=== PATIENT | female | born 1940 | race African-American/Black ===

== ENCOUNTER → 2017-10-04 | Outpatient (CLI) | payer OTHER, MEDICARE ==
[~2017-10-04] MED LIST: ALBU0.63 IH; ASPI-12 PO; BENZ200C53 PO; DAPS25TA PO; FLUT1AER IH; ISOS30TA11 PO; LIDOCAINE/PRILOCAINE CREAM 5GM TUBE TP ONE; LOSA1TAB37 PO; PROP20TA7 PO; SITA100T12 PO
[2017-10-04 15:25] VITALS: BP 168/71
== END | disposition home or self-care (01) ==
LOC: WHH 13:00
PROVIDERS: ATTEND Family Medicine
DX: I83.028 Varicose veins of left lower extremity with ulcer other part of lower leg (principal); E11.622 Type 2 diabetes mellitus with other skin ulcer; L97.821 Non-pressure chronic ulcer of other part of left lower leg limited to breakdown of skin; I89.0 Lymphedema, not elsewhere classified; I25.10 Atherosclerotic heart disease of native coronary artery without angina pectoris; I10 Essential (primary) hypertension; L10.0 Pemphigus vulgaris; E11.65 Type 2 diabetes mellitus with hyperglycemia; M19.90 Unspecified osteoarthritis, unspecified site; Z86.73 Personal history of transient ischemic attack (TIA), and cerebral infarction without residual deficits
CPT/HCPCS: 15271; A6197; J3490; Q4133

== ENCOUNTER → 2017-10-08 | Outpatient (CLI) | payer OTHER, MEDICARE ==
[~2017-10-08] MED LIST changes: -LIDOCAINE/PRILOCAINE CREAM 5GM TUBE TP ONE
[2017-10-08 18:23] VITALS: BP 138/53
== END | disposition home or self-care (01) ==
LOC: WHH 09:20
PROVIDERS: ATTEND Family Medicine
DX: I83.028 Varicose veins of left lower extremity with ulcer other part of lower leg (principal); E11.622 Type 2 diabetes mellitus with other skin ulcer; L97.821 Non-pressure chronic ulcer of other part of left lower leg limited to breakdown of skin; I25.10 Atherosclerotic heart disease of native coronary artery without angina pectoris; I10 Essential (primary) hypertension; I89.0 Lymphedema, not elsewhere classified; L10.0 Pemphigus vulgaris; M19.90 Unspecified osteoarthritis, unspecified site; E11.65 Type 2 diabetes mellitus with hyperglycemia; Z86.73 Personal history of transient ischemic attack (TIA), and cerebral infarction without residual deficits
CPT/HCPCS: A6196; G0463

== ENCOUNTER → 2017-10-11 | Outpatient (CLI) | payer OTHER, MEDICARE ==
[2017-10-11 16:12] VITALS: BP 163/57
== END | disposition home or self-care (01) ==
LOC: WHH 13:00
PROVIDERS: ATTEND Family Medicine
DX: T86.828 Other complications of skin graft (allograft) (autograft) (principal); I83.028 Varicose veins of left lower extremity with ulcer other part of lower leg; E11.622 Type 2 diabetes mellitus with other skin ulcer; L97.821 Non-pressure chronic ulcer of other part of left lower leg limited to breakdown of skin; I87.2 Venous insufficiency (chronic) (peripheral); I89.0 Lymphedema, not elsewhere classified; I25.10 Atherosclerotic heart disease of native coronary artery without angina pectoris; I10 Essential (primary) hypertension; E11.65 Type 2 diabetes mellitus with hyperglycemia; M19.90 Unspecified osteoarthritis, unspecified site; L10.0 Pemphigus vulgaris; Z86.73 Personal history of transient ischemic attack (TIA), and cerebral infarction without residual deficits; Y83.2 Surgical operation with anastomosis, bypass or graft as the cause of abnormal reaction of the patient, or of later complication, without mention of misadventure at the time of the procedure
CPT/HCPCS: 15271; A4450; A6197; Q4133

== ENCOUNTER → 2017-10-18 | Outpatient (CLI) | payer OTHER, MEDICARE ==
[2017-10-18 16:34] VITALS: BP 152/68
== END | disposition home or self-care (01) ==
LOC: WHH 13:00
PROVIDERS: ATTEND Family Medicine
DX: I83.028 Varicose veins of left lower extremity with ulcer other part of lower leg (principal); L97.821 Non-pressure chronic ulcer of other part of left lower leg limited to breakdown of skin; I89.0 Lymphedema, not elsewhere classified; I25.10 Atherosclerotic heart disease of native coronary artery without angina pectoris; I10 Essential (primary) hypertension; M19.90 Unspecified osteoarthritis, unspecified site; E11.65 Type 2 diabetes mellitus with hyperglycemia; L10.0 Pemphigus vulgaris; Z86.73 Personal history of transient ischemic attack (TIA), and cerebral infarction without residual deficits
CPT/HCPCS: 15271; A6196; Q4133

== ENCOUNTER → 2017-10-25 | Outpatient (CLI) | payer OTHER, MEDICARE ==
[2017-10-25 16:20] VITALS: BP 164/52
== END | disposition home or self-care (01) ==
LOC: WHH 13:00
PROVIDERS: ATTEND Family Medicine
DX: T86.828 Other complications of skin graft (allograft) (autograft) (principal); I83.028 Varicose veins of left lower extremity with ulcer other part of lower leg; E11.622 Type 2 diabetes mellitus with other skin ulcer; L97.821 Non-pressure chronic ulcer of other part of left lower leg limited to breakdown of skin; I10 Essential (primary) hypertension; I89.0 Lymphedema, not elsewhere classified; E11.65 Type 2 diabetes mellitus with hyperglycemia; M19.90 Unspecified osteoarthritis, unspecified site; Z86.73 Personal history of transient ischemic attack (TIA), and cerebral infarction without residual deficits; Y83.2 Surgical operation with anastomosis, bypass or graft as the cause of abnormal reaction of the patient, or of later complication, without mention of misadventure at the time of the procedure
CPT/HCPCS: A6209; G0463

== ENCOUNTER → 2017-11-01 | Outpatient (CLI) | payer OTHER, MEDICARE ==
[2017-11-01 15:15] VITALS: BP 172/76
== END | disposition home or self-care (01) ==
LOC: WHH 13:00
PROVIDERS: ATTEND Family Medicine
DX: I83.028 Varicose veins of left lower extremity with ulcer other part of lower leg (principal); L97.821 Non-pressure chronic ulcer of other part of left lower leg limited to breakdown of skin; L10.0 Pemphigus vulgaris; I10 Essential (primary) hypertension; I89.0 Lymphedema, not elsewhere classified; M19.90 Unspecified osteoarthritis, unspecified site; I25.10 Atherosclerotic heart disease of native coronary artery without angina pectoris; Z86.73 Personal history of transient ischemic attack (TIA), and cerebral infarction without residual deficits
CPT/HCPCS: 11042; A6197; A6248

== ENCOUNTER → 2017-11-08 | Outpatient (CLI) | payer OTHER, MEDICARE ==
[~2017-11-08] MED LIST changes: +LIDOCAINE HCL 4% LTA SOL 4 ML VIAL TP ONE
[2017-11-08 17:53] VITALS: BP 170/63
== END | disposition home or self-care (01) ==
LOC: WHH 13:00
PROVIDERS: ATTEND Family Medicine
DX: I83.028 Varicose veins of left lower extremity with ulcer other part of lower leg (principal); L97.821 Non-pressure chronic ulcer of other part of left lower leg limited to breakdown of skin; I89.0 Lymphedema, not elsewhere classified; I25.10 Atherosclerotic heart disease of native coronary artery without angina pectoris; I10 Essential (primary) hypertension; M19.90 Unspecified osteoarthritis, unspecified site; Z86.73 Personal history of transient ischemic attack (TIA), and cerebral infarction without residual deficits
CPT/HCPCS: 11042; A4450; A6197; A6248

== ENCOUNTER → 2017-11-15 | Outpatient (CLI) | payer OTHER, MEDICARE ==
[~2017-11-15] MED LIST changes: -LIDOCAINE HCL 4% LTA SOL 4 ML VIAL TP ONE; +LIDOCAINE/PRILOCAINE CREAM 5GM TUBE TP ONE
[2017-11-15 13:18] VITALS: BP 172/79
== END | disposition home or self-care (01) ==
LOC: WHH 13:00
PROVIDERS: ATTEND Family Medicine
DX: I83.028 Varicose veins of left lower extremity with ulcer other part of lower leg (principal); L97.821 Non-pressure chronic ulcer of other part of left lower leg limited to breakdown of skin; I89.0 Lymphedema, not elsewhere classified; I25.10 Atherosclerotic heart disease of native coronary artery without angina pectoris; I10 Essential (primary) hypertension; M19.90 Unspecified osteoarthritis, unspecified site; Z86.73 Personal history of transient ischemic attack (TIA), and cerebral infarction without residual deficits
CPT/HCPCS: 11042; A4450; A6197; A6248; J3490

== ENCOUNTER → 2017-11-22 | Outpatient (CLI) | payer OTHER, MEDICARE ==
[2017-11-22 13:28] VITALS: BP 161/69
== END | disposition home or self-care (01) ==
LOC: WHH 13:00
PROVIDERS: ATTEND Family Medicine
DX: I83.028 Varicose veins of left lower extremity with ulcer other part of lower leg (principal); E11.622 Type 2 diabetes mellitus with other skin ulcer; L97.821 Non-pressure chronic ulcer of other part of left lower leg limited to breakdown of skin; I89.0 Lymphedema, not elsewhere classified; E11.65 Type 2 diabetes mellitus with hyperglycemia; I25.10 Atherosclerotic heart disease of native coronary artery without angina pectoris; I10 Essential (primary) hypertension; M19.90 Unspecified osteoarthritis, unspecified site; Z86.73 Personal history of transient ischemic attack (TIA), and cerebral infarction without residual deficits
CPT/HCPCS: A6197; A6452; G0463; J3490

== ENCOUNTER 2017-11-29 13:00 | Outpatient (CLI) | payer OTHER, MEDICARE ==
[~2017-11-29 13:00] MED LIST changes: -LIDOCAINE/PRILOCAINE CREAM 5GM TUBE TP ONE
[2017-11-29 13:31] VITALS: BP 155/66
== END 2017-11-29 14:42 | disposition home or self-care (01) ==
LOC: WHH 13:00
PROVIDERS: ATTEND Family Medicine
DX: I83.028 Varicose veins of left lower extremity with ulcer other part of lower leg (principal); E11.622 Type 2 diabetes mellitus with other skin ulcer; L97.821 Non-pressure chronic ulcer of other part of left lower leg limited to breakdown of skin; I89.0 Lymphedema, not elsewhere classified; E11.65 Type 2 diabetes mellitus with hyperglycemia; I25.10 Atherosclerotic heart disease of native coronary artery without angina pectoris; I10 Essential (primary) hypertension; M19.90 Unspecified osteoarthritis, unspecified site; Z86.73 Personal history of transient ischemic attack (TIA), and cerebral infarction without residual deficits
CPT/HCPCS: G0463

== ENCOUNTER → 2018-07-11 | Outpatient (CLI) | payer OTHER, MEDICARE | END | disposition home or self-care (01) | LOC: RAH 09:26 | PROVIDERS: ATTEND Internal Medicine | DX: I08.1 Rheumatic disorders of both mitral and tricuspid valves (principal) | CPT/HCPCS: 93306 ==

== ENCOUNTER → 2019-09-18 | Outpatient (CLI) | payer OTHER, MEDICARE | END | disposition home or self-care (01) | LOC: RAH 12:52 | PROVIDERS: ATTEND Internal Medicine | DX: M47.812 Spondylosis without myelopathy or radiculopathy, cervical region (principal); M85.88 Other specified disorders of bone density and structure, other site; M25.78 Osteophyte, vertebrae | CPT/HCPCS: 72040; 72072 ==

== ENCOUNTER → 2019-12-14 | Outpatient (CLI) | payer OTHER, MEDICARE | END | disposition home or self-care (01) | LOC: RAH 10:11 | PROVIDERS: ATTEND Internal Medicine Critical Care Medicine | DX: I27.20 Pulmonary hypertension, unspecified (principal) | CPT/HCPCS: 93306; 93356 ==

== ENCOUNTER → 2020-03-15 | Outpatient (CLI) | payer OTHER, MEDICARE ==
[~2020-03-15] MED LIST changes: +HONEY 1 APPL/ML TUBE TP ONE
[2020-03-15 16:39] VITALS: BP 146/71
== END | disposition home or self-care (01) ==
LOC: WHH 14:15
PROVIDERS: ATTEND Family Medicine
DX: I83.028 Varicose veins of left lower extremity with ulcer other part of lower leg (principal); L97.822 Non-pressure chronic ulcer of other part of left lower leg with fat layer exposed; I89.0 Lymphedema, not elsewhere classified; I87.2 Venous insufficiency (chronic) (peripheral); I73.9 Peripheral vascular disease, unspecified; R01.1 Cardiac murmur, unspecified; C81.90 Hodgkin lymphoma, unspecified, unspecified site; Z86.711 Personal history of pulmonary embolism; Z98.49 Cataract extraction status, unspecified eye
CPT/HCPCS: 11042; 36415; 84134; 85651; 86140; 87070; A6197

== ENCOUNTER → 2020-03-18 | Outpatient (CLI) | payer OTHER, MEDICARE ==
[~2020-03-18] MED LIST changes: -ALBU0.63 IH; -ASPI-12 PO; -BENZ200C53 PO; -DAPS25TA PO; -FLUT1AER IH; -HONEY 1 APPL/ML TUBE TP ONE; -ISOS30TA11 PO; +LIDOCAINE HCL 4% LTA SOL 4 ML VIAL TP ONE; -LOSA1TAB37 PO; -PROP20TA7 PO; -SITA100T12 PO
[2020-03-18 13:44] VITALS: BP 129/51; PULSE 78; RESP 18; TEMP 99
== END | disposition home or self-care (01) ==
LOC: WHH 13:00
PROVIDERS: ATTEND Family Medicine
DX: I83.028 Varicose veins of left lower extremity with ulcer other part of lower leg (principal); L97.822 Non-pressure chronic ulcer of other part of left lower leg with fat layer exposed; I89.0 Lymphedema, not elsewhere classified; I10 Essential (primary) hypertension; I87.2 Venous insufficiency (chronic) (peripheral); I73.9 Peripheral vascular disease, unspecified; R01.1 Cardiac murmur, unspecified; C81.90 Hodgkin lymphoma, unspecified, unspecified site; Z86.711 Personal history of pulmonary embolism; Z98.49 Cataract extraction status, unspecified eye
CPT/HCPCS: 11042; A6197

== ENCOUNTER → 2020-03-21 | Outpatient (CLI) | payer OTHER, MEDICARE ==
[~2020-03-21] MED LIST changes: +ALBU0.63 IH; +ASPI-12 PO; +BENZ200C53 PO; +DAPS25TA PO; +FLUT1AER IH; +ISOS30TA11 PO; -LIDOCAINE HCL 4% LTA SOL 4 ML VIAL TP ONE; +LOSA1TAB37 PO; +PROP20TA7 PO; +SITA100T12 PO
[2020-03-21 11:16] VITALS: BP 102/58
== END | disposition home or self-care (01) ==
LOC: WHH 10:00
PROVIDERS: ATTEND Family Medicine
DX: T81.41XD Infection following a procedure, superficial incisional surgical site, subsequent encounter (principal); I10 Essential (primary) hypertension; I89.0 Lymphedema, not elsewhere classified; I73.9 Peripheral vascular disease, unspecified; I87.2 Venous insufficiency (chronic) (peripheral); C81.90 Hodgkin lymphoma, unspecified, unspecified site; R01.1 Cardiac murmur, unspecified; Z98.49 Cataract extraction status, unspecified eye; Z86.711 Personal history of pulmonary embolism; Y83.8 Other surgical procedures as the cause of abnormal reaction of the patient, or of later complication, without mention of misadventure at the time of the procedure
CPT/HCPCS: 93922; A6207; G0463

== ENCOUNTER → 2020-03-22 | Outpatient (CLI) | payer OTHER, MEDICARE ==
[~2020-03-22] MED LIST changes: -ALBU0.63 IH; -ASPI-12 PO; -BENZ200C53 PO; -DAPS25TA PO; -FLUT1AER IH; -ISOS30TA11 PO; +LIDOCAINE HCL 4% LTA SOL 4 ML VIAL TP ONE; -LOSA1TAB37 PO; -PROP20TA7 PO; -SITA100T12 PO
[2020-03-22 14:39] VITALS: BP 140/69; PULSE 67; RESP 18; TEMP 98.5
== END | disposition home or self-care (01) ==
LOC: WHH 13:15
PROVIDERS: ATTEND Family Medicine
DX: T81.41XD Infection following a procedure, superficial incisional surgical site, subsequent encounter (principal); I83.028 Varicose veins of left lower extremity with ulcer other part of lower leg; L97.822 Non-pressure chronic ulcer of other part of left lower leg with fat layer exposed; I83.013 Varicose veins of right lower extremity with ulcer of ankle; L97.312 Non-pressure chronic ulcer of right ankle with fat layer exposed; I10 Essential (primary) hypertension; I89.0 Lymphedema, not elsewhere classified; I73.9 Peripheral vascular disease, unspecified; I87.2 Venous insufficiency (chronic) (peripheral); C81.90 Hodgkin lymphoma, unspecified, unspecified site; R01.1 Cardiac murmur, unspecified; Z86.711 Personal history of pulmonary embolism; Z98.49 Cataract extraction status, unspecified eye; Y83.8 Other surgical procedures as the cause of abnormal reaction of the patient, or of later complication, without mention of misadventure at the time of the procedure
CPT/HCPCS: 11042; A6197 ×2; A6209

== ENCOUNTER → 2020-03-29 | Outpatient (CLI) | payer OTHER, MEDICARE | END | disposition home or self-care (01) | LOC: WHH 14:15 | PROVIDERS: ATTEND Family Medicine | DX: T81.41XD Infection following a procedure, superficial incisional surgical site, subsequent encounter (principal); I83.013 Varicose veins of right lower extremity with ulcer of ankle; L97.312 Non-pressure chronic ulcer of right ankle with fat layer exposed; I83.028 Varicose veins of left lower extremity with ulcer other part of lower leg; L97.821 Non-pressure chronic ulcer of other part of left lower leg limited to breakdown of skin; I10 Essential (primary) hypertension; C81.90 Hodgkin lymphoma, unspecified, unspecified site; I89.0 Lymphedema, not elsewhere classified; I73.9 Peripheral vascular disease, unspecified; R01.1 Cardiac murmur, unspecified; Z98.49 Cataract extraction status, unspecified eye; Z86.711 Personal history of pulmonary embolism; Z86.73 Personal history of transient ischemic attack (TIA), and cerebral infarction without residual deficits; Y83.8 Other surgical procedures as the cause of abnormal reaction of the patient, or of later complication, without mention of misadventure at the time of the procedure | CPT/HCPCS: 11042; A6196; A6213 ==

== ENCOUNTER → 2020-04-05 | Outpatient (CLI) | payer OTHER, MEDICARE ==
[~2020-04-05] MED LIST changes: +ALBU0.63 IH; +ASPI-12 PO; +BENZ200C53 PO; +DAPS25TA PO; +FLUT1AER IH; +ISOS30TA11 PO; +LOSA1TAB37 PO; +PROP20TA7 PO; +SITA100T12 PO
== END | disposition home or self-care (01) ==
LOC: WHH 14:30
PROVIDERS: ATTEND Family Medicine
DX: T81.41XD Infection following a procedure, superficial incisional surgical site, subsequent encounter (principal); I83.013 Varicose veins of right lower extremity with ulcer of ankle; L97.312 Non-pressure chronic ulcer of right ankle with fat layer exposed; I83.028 Varicose veins of left lower extremity with ulcer other part of lower leg; L97.821 Non-pressure chronic ulcer of other part of left lower leg limited to breakdown of skin; C81.90 Hodgkin lymphoma, unspecified, unspecified site; I10 Essential (primary) hypertension; I89.0 Lymphedema, not elsewhere classified; I73.9 Peripheral vascular disease, unspecified; I87.2 Venous insufficiency (chronic) (peripheral); R01.1 Cardiac murmur, unspecified; Z98.49 Cataract extraction status, unspecified eye; Z86.711 Personal history of pulmonary embolism; Z86.73 Personal history of transient ischemic attack (TIA), and cerebral infarction without residual deficits; Z88.0 Allergy status to penicillin; Y83.8 Other surgical procedures as the cause of abnormal reaction of the patient, or of later complication, without mention of misadventure at the time of the procedure
CPT/HCPCS: 11042; A6197; A6213

== ENCOUNTER → 2020-04-07 | Outpatient (CLI) | payer OTHER, MEDICARE ==
[~2020-04-07] MED LIST changes: -LIDOCAINE HCL 4% LTA SOL 4 ML VIAL TP ONE
== END | disposition home or self-care (01) ==
LOC: RAH 11:35
PROVIDERS: ATTEND Family Medicine
DX: S81.801A Unspecified open wound, right lower leg, initial encounter (principal); M79.89 Other specified soft tissue disorders; X58.XXXA Exposure to other specified factors, initial encounter; Y93.89 Activity, other specified; Y92.89 Other specified places as the place of occurrence of the external cause; Y99.8 Other external cause status
CPT/HCPCS: 73610

== ENCOUNTER → 2020-04-12 | Outpatient (CLI) | payer OTHER, MEDICARE ==
[~2020-04-12] MED LIST changes: +LIDOCAINE HCL 4% LTA SOL 4 ML VIAL TP ONE
== END | disposition home or self-care (01) ==
LOC: WHH 14:30
PROVIDERS: ATTEND Family Medicine
DX: T81.41XD Infection following a procedure, superficial incisional surgical site, subsequent encounter (principal); I83.028 Varicose veins of left lower extremity with ulcer other part of lower leg; L97.821 Non-pressure chronic ulcer of other part of left lower leg limited to breakdown of skin; S91.001D Unspecified open wound, right ankle, subsequent encounter; S81.802D Unspecified open wound, left lower leg, subsequent encounter; I10 Essential (primary) hypertension; C81.90 Hodgkin lymphoma, unspecified, unspecified site; I89.0 Lymphedema, not elsewhere classified; I73.9 Peripheral vascular disease, unspecified; R01.1 Cardiac murmur, unspecified; I87.2 Venous insufficiency (chronic) (peripheral); Z86.73 Personal history of transient ischemic attack (TIA), and cerebral infarction without residual deficits; Z88.0 Allergy status to penicillin; Z98.49 Cataract extraction status, unspecified eye; Z86.711 Personal history of pulmonary embolism; X58.XXXD Exposure to other specified factors, subsequent encounter; Y83.8 Other surgical procedures as the cause of abnormal reaction of the patient, or of later complication, without mention of misadventure at the time of the procedure
CPT/HCPCS: 11042; A6196; A6213

== ENCOUNTER → 2020-04-15 | Outpatient (CLI) | payer OTHER, MEDICARE ==
[~2020-04-15] MED LIST changes: -LIDOCAINE HCL 4% LTA SOL 4 ML VIAL TP ONE
== END | disposition home or self-care (01) ==
LOC: RAH 12:32
PROVIDERS: ATTEND Family Medicine
DX: S81.801A Unspecified open wound, right lower leg, initial encounter (principal); X58.XXXA Exposure to other specified factors, initial encounter; Y93.89 Activity, other specified; Y92.89 Other specified places as the place of occurrence of the external cause; Y99.8 Other external cause status
CPT/HCPCS: 73721

== ENCOUNTER → 2020-04-19 | Outpatient (CLI) | payer OTHER, MEDICARE ==
[~2020-04-19] MED LIST changes: +LIDOCAINE HCL 4% LTA SOL 4 ML VIAL TP ONE
== END | disposition home or self-care (01) ==
LOC: WHH 14:20
PROVIDERS: ATTEND Family Medicine
DX: S81.801D Unspecified open wound, right lower leg, subsequent encounter (principal); S81.802D Unspecified open wound, left lower leg, subsequent encounter; I83.012 Varicose veins of right lower extremity with ulcer of calf; L97.312 Non-pressure chronic ulcer of right ankle with fat layer exposed; I83.028 Varicose veins of left lower extremity with ulcer other part of lower leg; L97.821 Non-pressure chronic ulcer of other part of left lower leg limited to breakdown of skin; I10 Essential (primary) hypertension; C81.90 Hodgkin lymphoma, unspecified, unspecified site; I89.0 Lymphedema, not elsewhere classified; I73.9 Peripheral vascular disease, unspecified; I87.2 Venous insufficiency (chronic) (peripheral); Z86.73 Personal history of transient ischemic attack (TIA), and cerebral infarction without residual deficits; Z88.0 Allergy status to penicillin; Z98.49 Cataract extraction status, unspecified eye; Z86.711 Personal history of pulmonary embolism; X58.XXXD Exposure to other specified factors, subsequent encounter
CPT/HCPCS: 11042; A6213

== ENCOUNTER → 2020-04-26 | Outpatient (CLI) | payer OTHER, MEDICARE ==
[~2020-04-26] MED LIST changes: -LIDOCAINE HCL 4% LTA SOL 4 ML VIAL TP ONE
== END | disposition home or self-care (01) ==
LOC: WHH 14:30
PROVIDERS: ATTEND Family Medicine
DX: T81.41XD Infection following a procedure, superficial incisional surgical site, subsequent encounter (principal); I83.028 Varicose veins of left lower extremity with ulcer other part of lower leg; L97.828 Non-pressure chronic ulcer of other part of left lower leg with other specified severity; I83.013 Varicose veins of right lower extremity with ulcer of ankle; L97.312 Non-pressure chronic ulcer of right ankle with fat layer exposed; S81.801D Unspecified open wound, right lower leg, subsequent encounter; I10 Essential (primary) hypertension; C81.90 Hodgkin lymphoma, unspecified, unspecified site; I89.0 Lymphedema, not elsewhere classified; I73.9 Peripheral vascular disease, unspecified; R01.1 Cardiac murmur, unspecified; I87.2 Venous insufficiency (chronic) (peripheral); Z86.73 Personal history of transient ischemic attack (TIA), and cerebral infarction without residual deficits; Z88.0 Allergy status to penicillin; Z98.49 Cataract extraction status, unspecified eye; Z86.711 Personal history of pulmonary embolism; X58.XXXD Exposure to other specified factors, subsequent encounter; Y83.8 Other surgical procedures as the cause of abnormal reaction of the patient, or of later complication, without mention of misadventure at the time of the procedure
CPT/HCPCS: 11042; A6213

== ENCOUNTER → 2020-05-03 | Outpatient (CLI) | payer OTHER, MEDICARE ==
[~2020-05-03] MED LIST changes: +LIDOCAINE HCL 4% LTA SOL 4 ML VIAL TP ONE
== END | disposition home or self-care (01) ==
LOC: WHH 13:00
PROVIDERS: ATTEND Family Medicine
DX: T81.41XD Infection following a procedure, superficial incisional surgical site, subsequent encounter (principal); I83.028 Varicose veins of left lower extremity with ulcer other part of lower leg; L97.828 Non-pressure chronic ulcer of other part of left lower leg with other specified severity; I83.013 Varicose veins of right lower extremity with ulcer of ankle; L97.312 Non-pressure chronic ulcer of right ankle with fat layer exposed; S81.801D Unspecified open wound, right lower leg, subsequent encounter; I10 Essential (primary) hypertension; C81.90 Hodgkin lymphoma, unspecified, unspecified site; I89.0 Lymphedema, not elsewhere classified; I73.9 Peripheral vascular disease, unspecified; R01.1 Cardiac murmur, unspecified; I87.2 Venous insufficiency (chronic) (peripheral); Z86.73 Personal history of transient ischemic attack (TIA), and cerebral infarction without residual deficits; Z88.0 Allergy status to penicillin; Z98.49 Cataract extraction status, unspecified eye; Z86.711 Personal history of pulmonary embolism; X58.XXXD Exposure to other specified factors, subsequent encounter; Y83.8 Other surgical procedures as the cause of abnormal reaction of the patient, or of later complication, without mention of misadventure at the time of the procedure
CPT/HCPCS: A6210; G0463

== ENCOUNTER 2020-05-10 13:00 | Outpatient (CLI) | payer OTHER, MEDICARE ==
[~2020-05-10 13:00] MED LIST changes: -LIDOCAINE HCL 4% LTA SOL 4 ML VIAL TP ONE
== END 2020-05-10 14:31 | disposition home or self-care (01) ==
LOC: WHH 13:00
PROVIDERS: ATTEND Family Medicine
DX: T81.41XD Infection following a procedure, superficial incisional surgical site, subsequent encounter (principal); S81.801D Unspecified open wound, right lower leg, subsequent encounter; I83.028 Varicose veins of left lower extremity with ulcer other part of lower leg; L97.828 Non-pressure chronic ulcer of other part of left lower leg with other specified severity; I10 Essential (primary) hypertension; C81.90 Hodgkin lymphoma, unspecified, unspecified site; I89.0 Lymphedema, not elsewhere classified; I73.9 Peripheral vascular disease, unspecified; R01.1 Cardiac murmur, unspecified; I87.2 Venous insufficiency (chronic) (peripheral); Z86.73 Personal history of transient ischemic attack (TIA), and cerebral infarction without residual deficits; Z88.0 Allergy status to penicillin; Z98.49 Cataract extraction status, unspecified eye; Z86.711 Personal history of pulmonary embolism; X58.XXXD Exposure to other specified factors, subsequent encounter; Y83.8 Other surgical procedures as the cause of abnormal reaction of the patient, or of later complication, without mention of misadventure at the time of the procedure
CPT/HCPCS: G0463

== ENCOUNTER → 2021-03-28 | Outpatient (CLI) | payer OTHER, MEDICARE | END | disposition home or self-care (01) | LOC: SHCH 09:58 | PROVIDERS: ATTEND Internal Medicine Cardiovascular Disease | DX: I08.1 Rheumatic disorders of both mitral and tricuspid valves (principal); R01.1 Cardiac murmur, unspecified; E66.9 Obesity, unspecified; E78.5 Hyperlipidemia, unspecified; R55 Syncope and collapse | CPT/HCPCS: 93306; 93356 ==

== ENCOUNTER → 2023-01-17 | Outpatient (CLI) | payer OTHER, MEDICARE ==
[~2023-01-17] MED LIST changes: -ALBU0.63 IH; +ASCO100031 PO; +ASPI-1197 PO; -ASPI-12 PO; -BENZ200C53 PO; +BIOTIN; -DAPS25TA PO; +FISH1CAP20 PO; -FLUT1AER IH; +FURO20TA4 PO; +HYDR12.54 PO; -ISOS30TA11 PO; -LOSA1TAB37 PO; +LOSA50TA64 PO; +MULT-685 PO; -SITA100T12 PO
== END | disposition home or self-care (01) ==
LOC: SHCH 14:42
PROVIDERS: ATTEND Internal Medicine Cardiovascular Disease
DX: I87.2 Venous insufficiency (chronic) (peripheral) (principal); I87.1 Compression of vein
CPT/HCPCS: 93970

== ENCOUNTER → 2023-06-24 | Outpatient (CLI) | payer OTHER, MEDICARE | END | disposition home or self-care (01) | LOC: RAH 13:29 | PROVIDERS: ATTEND Internal Medicine | DX: M77.32 Calcaneal spur, left foot (principal); M25.572 Pain in left ankle and joints of left foot; M79.672 Pain in left foot | CPT/HCPCS: 73610; 73630 ==

== ENCOUNTER 2024-11-20 12:58 | Emergency (ER) | payer OTHER, MEDICARE ==
[~2024-11-20] VITALS: Ht 160 cm; Wt 75.7 kg
[2024-11-20 15:05] VITALS: BP 143/61; PULSE 72; RESP 16; TEMP 98.8; O2SAT 98
[2024-11-20] MEDS: OXYmetazolone HCL SPRAY 15 ML BOTTLE EN SCH (15:05)
[2024-11-20] MEDS: OXYmetazolone HCL SPRAY 15 ML BOTTLE ONE (15:05)
--- NOTE | 2024-11-20 15:17 | ERN ---
General Chief Complaint: Nosebleed Stated Complaint: NOSE BLEED Time Seen by MD: 13:00 Source: patient History of Present Illness Initial Comments Patient is a an 84-year-old female coming in due to bleeding from her nose. Per patient she was evaluated by her PCP PCP tried to cauterize bleeding but was unsuccessful. Her family member and patient she has been bleeding since the morning. Allergies: Coded Allergies: Penicillins (Unverified Allergy, Unknown, 11/23/16) iodine (Unverified Allergy, Unknown, 04/11/22) Home Meds Reported Medications Multivitamin with Minerals (Multiple Vitamin) 1 Each Tablet, 1 EACH PO DAILY, TAB 04/11/22 [place]-3 Fatty Acids/Fish Oil (Fish Oil 1000 mg/Cap) 1,000 Mg/Cap Capsule, 1000 MG PO DAILY, CAP 04/11/22 Ascorbic Acid (Vitamin C) 1,000 Mg Tablet, 1000 MG PO DAILY, TAB 04/11/22 Aspirin (Aspirin) 81 Mg Tab.chew, 81 MG PO DAILY, TAB.CHEW 04/11/22 Hydrochlorothiazide (Hydrochlorothiazide) 12.5 Mg Tablet, 12.5 MG PO DAILY, TAB 04/11/22 Furosemide (Furosemide) 20 Mg Tablet, 20 MG PO BID, TAB 04/11/22 Losartan Potassium (Losartan Potassium) 50 Mg Tablet, 50 MG PO DAILY, TAB 04/11/22 Propranolol HCl (Propranolol HCl) 20 Mg Tablet, 20 MG PO DAILY, TAB 04/11/22 [ Biotin] No Conflict Check, 5000 MCG 04/11/22 Past Medical History Past Medical History: CHF, High Cholesterol, Hypertension Past Surgical History: Unknown Social History Social History: Negative ROS Dictation CONSTITUTIONAL: No chills, no fever, no weakness, no diaphoresis, no malaise. HEAD/FACE: No signs of trauma. EENT: No eye pain, no blurred vision, no tearing, no double vision, no ear pain, no ear discharge, no nose pain, no nasal congestion, no throat pain, no throat swelling, no mouth pain. RESPIRATORY: No cough, no orthopnea, no SOB, no stridor, no wheezing. CARDIOVASCULAR: No chest pain, no edema, no palpitations, no syncope. GASTROINTESTINAL/ABDOMINAL: No abdominal pain, no constipation, no diarrhea, no nausea, no vomiting. GENITOURINARY: No abnormal discharge, no dysuria, no frequent urination, no hematuria. No complaints of pain in the genitals. MUSCULOSKELETAL: No back pain, no gout, no joint pain, no joint swelling, no muscle pain, no muscle stiffness, no neck pain. INTEGUMENTARY: No change in color, no change in hair/nails, no dryness, no lesion, no lumps, no rash. NEUROLOGICAL/PSYCH: No anxiety, not depressed, no emotional problem, no headache, no numbness, no pre-existing deficit, no history of seizures, no tremors, no weakness. HEMATOLOGIC/LYMPHATIC: Not anemic, no history of blood clots, no apparent bleeding, no bruising, glands not swollen. All Systems Negative, Except as Noted. Physical Exam Physical Exam Dictation VITAL SIGNS: Reviewed. GENERAL APPEARANCE: Alert, oriented x3, no acute distress, obese. HEAD AND FACE: Non-traumatic. EYES: PERRL, pink conjunctivas, eyelid no trauma, anterior chamber clear. EARS: Pinnas intact and no signs of trauma or erythema. Ear canals clear and no discharge. TMs no erythema. NOSE: No discharge, bleeding left nostril, right nostril clots in place. OROPHARYNX: Mouth normal, teeth no caries, tongue pink. Pharynx clear, no erythema. Tonsils no exudates, no abscesses noted. Mucous membrane moist. NECK: Supple, non-tender, no thyromegaly, no masses, no JVD, no bruits. BREAST: Deferred. CHEST: No tenderness, no crepitus, no paradoxical movement, no retractions. LUNGS: Clear, well-ventilated, symmetric, no rales, no wheezing, no rhonchi, no stridor, good breath sounds bilaterally. HEART: Regular rate, regular rhythm, no murmur, no gallops. VASCULAR: No peripheral edema. ABDOMEN: Soft, positive bowel sounds, nondistended, no guarding, nontender, no rebound, no masses no hepatomegaly, no splenomegaly, no Mota's sign, no hernias. RECTAL: Deferred. GENITAL: Deferred. NEUROLOGICAL: Normal speech, gross motor function intact, gross sensory function intact. MUSCULOSKELETAL: Neck nontender, full range of motion, back nontender, full range of motion. EXTREMITIES: Nontender, full range of motion. SKIN: Color pink, dry, no turgor, no rash, no lacerations, no abrasions, no contusions. LYMPHATICS: Deferred. Results Laboratory and Microbiology Labs Reviewed?: Yes MDM MDM: Differential diagnosis: Epistaxis, nasal fracture, Patient is an 84-year-old female coming in to be evaluated for epistaxis of the left [place]. Upon evaluation multiple clots were extracted oxymetazoline was infused and tissue was dilated posterior epistaxis was noticed. Left rhino rocket was introduced epistaxis stopped. Patient will be discharged in stable condition with a diagnosis of the epistaxis. ED Course Orders Procedure Category Date Status Time Oxymetazolone Hcl PHA 11/20/24 Complete [place] (Afrin) 14:43 Oxymetazolone Hcl PHA 11/20/24 In Process [place] (Afrin) 15:00 Current Medications Medications (Trade) Dose Ordered Sig/[place] Route PRN Reason Start Time Stop Time Status Last Admin Dose Admin Oxymetazoline HCl (AFrin) 2 sprays ONCE EN 11/20/24 15:00 12/20/24 14:59 11/20/24 15:05 Oxymetazoline HCl (AFrin) 100 sprays STK-MED ONCE .ROUTE 11/20/24 14:43 11/20/24 14:44 DC Vital Signs Date Time Temp Pulse Resp B/P (MAP) Pulse Ox O2 Delivery O2 Flow Rate FiO2 11/20/24 15:05 98.8 72 16 143/61 98 Room Air* 0 21 11/20/24 13:01 98.8 78 16 150/59 98 Room Air 0 11/20/24 13:00 98.8 78 16 150/59 98 Room Air* 0 21 Procedure Dictation Rhino rocket placement- Left side posterior epistaxis, rhino rocket completely covered with triple antibiotic cream, Afrin was used to dilate smooth muscle tissue. Rhino rocket was introduced epistaxis obtained. Patient will be discharged in stable condition. DX & DISP Disposition: Discharge Departure Impression: Primary Impression: Epistaxis Condition: Stable Additional Instructions: FOLLOW-UP WITH PRIMARY CARE PROVIDER IN 1 TO 2 DAYS. TAKE MEDICATIONS DIRECTED HERE IN THE EMERGENCY ROOM. OKAY TO CONTINUE HOME MEDICATIONS UNLESS OTHERWISE DISCUSSED DURING YOUR VISIT IN THE EMERGENCY ROOM TODAY. RETURN TO YOUR NEAREST EMERGENCY ROOM IF SYMPTOMS WORSEN OR IF THERE IS NO IMPROVEMENT. CALL 911 IF YOU NEED IMMEDIATE ASSISTANCE. TAKE TYLENOL ASMF-[id number] NEEDED AND IF NO CONTRAINDICATIONS ARE PRESENT. INCREASE ORAL HYDRATION. A WOUND CULTURE OR URINE CULTURE WAS ORDERED HERE IN THE EMERGENCY ROOM DEPARTMENT PLEASE FOLLOW-UP WITH PRIMARY CARE PROVIDER AND ADVISE THEM TO GET REPEAT PORTS FROM OUR FACILITY. IF YOU HAD ANY SYBIL WRAP/SPLINTS THAT WERE APPLIED HERE, PLEASE DO NOT REMOVE THEM UNTIL YOU SEE YOUR PRIMARY CARE OR SPECIALTY. Referrals: Referrals: ALBINO SHANE MD (PCP) Time of Disposition: 15:15 KEYONNA MARTINEZ MD Nov 20, 2024 15:16
[2024-11-20] MEDS: NEOMY SULF/BACITRA/POLYMYXIN B 1 EACH PACKET TP ONE (16:12)
== END 2024-11-20 15:23 | disposition home or self-care (01) ==
LOC: EDH 12:58
DX: R04.0 Epistaxis (principal); E78.00 Pure hypercholesterolemia, unspecified; I11.0 Hypertensive heart disease with heart failure; I50.9 Heart failure, unspecified; Z79.82 Long term (current) use of aspirin; Z79.899 Other long term (current) drug therapy; Z88.0 Allergy status to penicillin; Z88.8 Allergy status to other drugs, medicaments and biological substances; Z91.041 Radiographic dye allergy status
CPT/HCPCS: 30905; 99284

== ENCOUNTER 2024-11-24 13:13 | Emergency (ER) | payer OTHER, MEDICARE ==
[~2024-11-24] VITALS: Ht 165.1 cm; Wt 73.9 kg
--- NOTE | 2024-11-24 16:48 | ERN ---
ED Note History of Present Illness Stated Complaint: SENT BY Chief Complaint: Nosebleed Time Seen by MD: 13:49 Time Seen by Midlevel: 13:49 Dictation: 84-year-old female presents to the ED for evaluation of epistaxis onset four days ago. Patient was seen here at the ER for epistaxis and had a rhino rocket placed, patient went to PCP to remove it and was sent to the ER for further evaluation. Patient is not complaining of dizziness, but denies any other associated symptoms at this time. Allergies: Coded Allergies: Penicillins (Unverified Allergy, Unknown, 11/23/16) iodine (Unverified Allergy, Unknown, 04/11/22) Home Meds Reported Medications Multivitamin with Minerals (Multiple Vitamin) 1 Each Tablet, 1 EACH PO DAILY, TAB 04/11/22 [place]-3 Fatty Acids/Fish Oil (Fish Oil 1000 mg/Cap) 1,000 Mg/Cap Capsule, 1000 MG PO DAILY, CAP 04/11/22 Ascorbic Acid (Vitamin C) 1,000 Mg Tablet, 1000 MG PO DAILY, TAB 04/11/22 Aspirin (Aspirin) 81 Mg Tab.chew, 81 MG PO DAILY, TAB.CHEW 04/11/22 Hydrochlorothiazide (Hydrochlorothiazide) 12.5 Mg Tablet, 12.5 MG PO DAILY, TAB 04/11/22 Furosemide (Furosemide) 20 Mg Tablet, 20 MG PO BID, TAB 04/11/22 Losartan Potassium (Losartan Potassium) 50 Mg Tablet, 50 MG PO DAILY, TAB 04/11/22 Propranolol HCl (Propranolol HCl) 20 Mg Tablet, 20 MG PO DAILY, TAB 04/11/22 [ Biotin] No Conflict Check, 5000 MCG 04/11/22 Past Medical History Past Medical History: CHF, High Cholesterol, Hypertension Surgical History: Unknown Surgical History Other: STENTS Social History: Negative Review of System Dictation Constitutional: Negative for fever,chills, and weight loss Eyes: Negative for injury, pain,redness, and discharge ENT: Negative for injury,pain or swelling Cardiovascular: Negative for chest pain, palpitations, and edema Respiratory: Negative for shortness of breath, cough, and wheezing, Abdomen/GI: Negative for abdominal pain, nausea, vomiting, diarrhea, and constipation Back: Negative for injury and pain : Negative for injury, bleeding and discharge MS/Extremity: Negative for injury and deformity Skin: Negative for rash, and discoloration Neuro: Positive for dizziness Negative for headache, weakness, numbness, tingling, and seizure Psych: Negative for suicide ideation, homicidal ideation, and hallucinations Initial Vital Sign VS Vital Signs Date Time Temp Pulse Resp B/P (MAP) Pulse Ox O2 Delivery O2 Flow Rate FiO2 11/24/24 13:56 97.0 62 20 172/72 98 Room Air 0 11/24/24 17:52 21 Physical Exam Dictation General: awake, alert, NAD Head/Face: Normocephalic, atraumatic Eyes: PERRL, EOMI, normal conjunctiva ENT: oral cavity clear, rhino rocket in place, post rhino rocket removal bilateral nails patent with no active bleeding Neck: Normal range of motion, supple Cardiovascular: RRR, normal S1/S2 Respiratory: CTAB, no respiratory distress, no rales or wheezes Skin: Warm, dry, normal turgor, no rash MS/Extremity: Pulses equal, no cyanosis, neurovascular intact, FROM Neuro: COAx4, GCS 15, no neurological deficits, normal gait Psych: Normal behavior, mood, and affect normal Results (Laboratory/Radiology) Laboratory/Radiology Laboratory Tests Test 11/24/24 17:04 White Blood Count 6.0 K/uL (4.8-10.8) Red Blood Count 4.97 MIL/uL (4.00-5.50) Hemoglobin 11.4 g/dL (12.0-16.0) L Hematocrit 37.2 % (36-48) Mean Corpuscular Volume 74.8 fL (79-99) L Mean Corpuscular Hemoglobin 22.9 pg (27.0-33.0) L Mean Corpuscular Hemoglobin Concent 30.6 g/dL (32.0-36.0) L Red Cell Distribution Width 16.2 % (11.0-15.5) H Platelet Count 322 K/uL (130-400) Mean Platelet Volume 10.3 fL (7.5-10.5) Immature Granulocyte % (Auto) 0.5 % (0-1) Neutrophils (%) (Auto) 53.2 % (40.0-77.0) Lymphocytes (%) (Auto) 26.9 % (21.0-51.0) Monocytes (%) (Auto) 11.8 % (3.0-13.0) Eosinophils (%) (Auto) 6.9 % (0.0-8.0) Basophils (%) (Auto) 0.7 % (0.0-5.0) Neutrophils # (Auto) 3.2 K/uL (1.8-7.7) Lymphocytes # (Auto) 1.6 K/uL (1.0-4.8) Monocytes # (Auto) 0.7 K/uL (0.1-1.0) Eosinophils # (Auto) 0.41 K/uL (0.00-0.70) Basophils # (Auto) 0.04 K/uL (0.00-0.20) Absolute Immature Granulocyte (auto 0.03 K/uL (0-1) Nucleated Red Blood Cells 0.7 % (0.0-0.19) H Red Blood Cell Morphology See comments Prothrombin Time 10.7 SEC (9.6-11.6) Prothromb Time International Ratio 0.95 (0.85-1.15) Activated Partial Thromboplast Time 26.2 SEC (26.3-35.5) L Sodium Level 139 mmol/L (136-145) Potassium Level 4.0 mmol/L (3.5-5.1) Chloride Level 103 mmol/L (101-111) Carbon Dioxide Level 32 mmol/L (21-32) Blood Urea Nitrogen 11 mg/dL (7-18) Creatinine 0.7 mg/dL (0.5-1.0) Glomerular Filtration Rate Calc 85 mL/min (>90) Random Glucose 96 mg/dL (70-105) Total Calcium 9.4 mg/dL (8.5-10.1) ED Course ED Course Orders Procedure Category Date Status Time Cbc With Differential LAB 11/24/24 Complete 16:32 Basic Metabolic Panel LAB 11/24/24 Complete 16:32 Pt And Ptt LAB 11/24/24 Complete 16:32 Vital Signs Date Time Temp Pulse Resp B/P (MAP) Pulse Ox O2 Delivery O2 Flow Rate FiO2 11/24/24 19:20 98.1 64 16 142/70 98 Room Air* 0 21 11/24/24 17:52 97.9 63 14 159/73 96 Room Air* 0 21 11/24/24 13:56 97.0 62 20 172/72 98 Room Air 0 Medical Decision Making MDM MDM: Differential diagnosis: Dizziness, epistaxis, electrolyte imbalance Rationale: 84-year-old female presents to the ED for evaluation of epistaxis onset four days ago. Patient was seen here at the ER for epistaxis and had a rhino rocket placed, patient went to PCP to remove it and was sent to the ER for further evaluation. Patient is not complaining of dizziness, but denies any other associated symptoms at this time. Labs obtained are nonspecific with no acute abnormalities. Rhino rocket was removed and patient was monitored. Bilateral nares are patent with no active bleeding patient was discharged and educated for further epistaxis and when to return to the emergency department. Patient was advised to follow up with PCP. Return to the emergency department if any worsening symptoms. Patient verbalized understanding. Patient stable for discharge. Previous outside records reviewed: Old ER visits. Risk of complication and/or morbidity or mortality of patient management: None Medications-Per medication reconciliation Need for hospitalization: Patient does not meet criteria for hospitalization. Need for emergency major/minor surgery: No There are no social concerns with this patient. Prescription drug management Prescriptions will include symptomatic care Patient's prior external medical records from other ER visits were reviewed by me as indicated. Prior testing and results from previous visits were reviewed. Prior tests were taken into account with medical decision making and resource utilization, independent historian/historians were used to obtain complete medical history. I independently interpreted the test that were performed, results were reviewed by me and considered findings on radiology if ordered. Medical management and examination interpretation discussions were had by me with other qualified healthcare professionals as indicated for the patient's care. DX & DISP Disposition: Discharge Departure Impression: Primary Impression: Encounter for removal of nasal packing Condition: Stable Additional Instructions: Discharge home. Rest. Follow up with primary care DrJudie in 24 hours. Return to the ER for any acute changes or worsening symptoms. If any medications were prescribed take as directed. Okay to continue home medications unless otherwise discussed during your visit in the emergency room today. Patient was also advised to follow-up with primary care physician in 1 to 2 days for continued monitoring. Referrals: ALBINO SHANE MD (PCP) I have reviewed, & agreed with my scribe's, documentation. (I Pete Unger, am acting as a scribe for DWIGHT King) I performed the substantive portion of the visit. I have reviewed and personally made and approve the management plan that is documented in the notes by myself or the ELAINE. I acknowledge full responsibility for the patient's management plan. I personally scribed for LUIS ANGEL KING (JUS) on 11/24/24 at 16:48. Electronically submitted by Pete Unger ([employer]). I personally scribed for LUIS ANGEL KING (JUS) on 11/24/24 at 16:50. Electronically submitted by Pete Unger ([employer]). I personally scribed for LUIS ANGEL KING (JUS) on 11/24/24 at 17:27. Electronically submitted by Pete Unger ([employer]). LUIS ANGEL KING Nov 24, 2024 16:48
[2024-11-24 17:15] LABS: BASOPHILS # (AUTO) 0.04 K/uL (0.00-0.20); BASOPHILS % (AUTO) 0.7 % (0.0-5.0); EOSINOPHILS # (AUTO) 0.41 K/uL (0.00-0.70); EOSINOPHILS % (AUTO) 6.9 % (0.0-8.0); HEMATOCRIT 37.2 % (36-48); IMMATURE GRANULOCYTE ABSOLUTE 0.03 K/uL (0-1); LYMPHOCYTES # (AUTO) 1.6 K/uL (1.0-4.8); LYMPHOCYTES % (AUTO) 26.9 % (21.0-51.0); MEAN CORPUSCULAR HEMOGLOBIN 22.9 pg (27.0-33.0); MEAN CORPUSCULAR HGB CONC 30.6 g/dL (32.0-36.0); MEAN CORPUSCULAR VOLUME 74.8 fL (79-99); MONOCYTES # (AUTO) 0.7 K/uL (0.1-1.0); MONOCYTES % (AUTO) 11.8 % (3.0-13.0); NEUTROPHILS # (AUTO) 3.2 K/uL (1.8-7.7); NEUTROPHILS % (AUTO) 53.2 % (40.0-77.0); NUCLEATED RED BLOOD CELLS 0.7 % (0.0-0.19); PLATELET COUNT (AUTO) 322 K/uL (130-400); RED BLOOD CELL COUNT(AUTO) 4.97 MIL/uL (4.00-5.50); RED CELL DISTRIBUTION WIDTH 16.2 % (11.0-15.5)
[2024-11-24 17:21] LABS: INR 0.95 (0.85-1.15); PROTHROMBIN TIME 10.7 SEC (9.6-11.6)
[2024-11-24 17:22] LABS: PARTIAL THROMBOPLASTIN TIME 26.2 SEC (26.3-35.5)
[2024-11-24 17:31] LABS: CREATININE 0.7 mg/dL (0.5-1.0)
--- NOTE | 2024-11-24 18:54 | NUR ---
185, LEFT NARE RHINO ROCKET REMOVED INTACT, NO ACTIVE BLEEDING , PT TOLERATED IT WELL. NO C/O PAIN.
[2024-11-24 19:20] VITALS: BP 142/70; PULSE 64; RESP 16; TEMP 98; O2SAT 98
== END 2024-11-24 19:30 | disposition home or self-care (01) ==
LOC: EDH 13:13
DX: R04.0 Epistaxis (principal); E78.00 Pure hypercholesterolemia, unspecified; I11.0 Hypertensive heart disease with heart failure; I50.9 Heart failure, unspecified; Z48.00 Encounter for change or removal of nonsurgical wound dressing; Z79.82 Long term (current) use of aspirin; Z79.899 Other long term (current) drug therapy; Z88.0 Allergy status to penicillin; Z88.8 Allergy status to other drugs, medicaments and biological substances; Z91.041 Radiographic dye allergy status
CPT/HCPCS: 36415; 80048; 85025; 85610; 85730; 99284

== ENCOUNTER 2025-04-30 05:49 | Day surgery (SDC) | payer OTHER, MEDICARE ==
[2025-04-28 08:47] LABS: IMMATURE GRANULOCYTE ABSOLUTE 0.02 K/uL (0-1); NUCLEATED RED BLOOD CELLS 0.0 % (0.0-0.19); PLATELET COUNT (AUTO) 284 K/uL (130-400); RED BLOOD CELL COUNT(AUTO) 5.31 MIL/uL (4.00-5.50); RED CELL DISTRIBUTION WIDTH 15.5 % (11.0-15.5); WHITE BLOOD COUNT (AUTO) 5.1 K/uL (4.8-10.8)
[2025-04-28 08:56] LABS: CREATININE 0.7 mg/dL (0.5-1.0); GLOMERULAR FILTR. RATE CALC 85.0 mL/min (>90); GLUCOSE,RANDOM 144.0 mg/dL (70-105); SODIUM SERUM 139.0 mmol/L (136-145); UREA NITROGEN, BLOOD 14.0 mg/dL (7-18)
[2025-04-28 08:58] LABS: INR 1.07 (0.85-1.15)
[2025-04-28 09:49] VITALS: BP 160/71; PULSE 73; RESP 18; TEMP 97.7
[~2025-04-30] VITALS: Ht 160 cm; Wt 75.3 kg
[2025-04-30] VITALS (18 sets, daily range): BP systolic 129–181; BP diastolic 50–87; PULSE 62–83; RESP 14–17; TEMP 97.2–98
[~2025-04-30 05:49] MED LIST changes: +ATOR10 PO; +BIOT5000 PO; -BIOTIN; +CHOL2000 PO; -FISH1CAP20 PO; -HYDR12.54 PO; +LORA10TA7 PO; +OMEG100014 PO; +PROP10TA10 PO; -PROP20TA7 PO
[2025-04-30] MEDS ORDERED: LIDOCAINE PF 100MG/5ML (2%) SYRINGE 5ML ONE (07:00)
[2025-04-30] MEDS ORDERED: MIDAZOLAM HCL 1 MG/ML 2ML VIAL ONE (07:00)
[2025-04-30] MEDS ORDERED: GLYCOPYRROLATE 0.2 MG/ML 5 ML VIAL ONE (07:00)
[2025-04-30] MEDS ORDERED: NEOSTIGMINE METHYLSULFATE 1MG/ML IV ONE (07:00)
[2025-04-30] MEDS ORDERED: IOHEXOL 350 MG/ML 100ML INFUS..BTL IV ONE (07:10)
[2025-04-30] MEDS ORDERED: NITROGLYCERIN 50MG VIAL ONE (07:10)
[2025-04-30] MEDS ORDERED: LIDOCAINE HCL 400MG/20ML VIAL ONE (07:10)
[2025-04-30] MEDS ORDERED: HEParin-NS 1,000 UNIT/500 ML 1,000 ML IV ONE (07:10)
[2025-04-30] MEDS ORDERED: IODIXANOL 320 MG/ML 100 ML VIAL ONE (07:22)
[2025-04-30] MEDS ORDERED: ASPIRIN 81MG CHEW TAB ONE (08:13)
[2025-04-30] MEDS ORDERED: GLUCAGON 1MG KIT 1 MG ML IM PRN (08:30)
[2025-04-30] MEDS ORDERED: DEXTROSE 50%-WATER 50 ML DISP.SYRIN IV PRN (08:30)
--- NOTE | 2025-04-30 08:30 | PRN ---
Procedure Note INDICATION FOR PROCEDURE: [] Ceap 6 venous reflux PROCEDURE: [] Bilateral common femoral vein sheath placement 9 [place] Bilateral common femoral venogram Intravascular ultrasound of bilateral common iliac external iliac common femoral veins Primary stent placement to right common and external iliac vein with the use of a 16 mm x 120 mm Medtronic venous self expanding stent DATE OF PROCEDURE: April 30, 2025 HEEL ROOM SUPERVISOR: Abrahan Ghotra MD, F.A.C.C. PROCEDURE NOTE: [] Patient was brought to catheterization suite prepped draped sterile fashion IV started if not already in place in both groins exposed for venous access. 2% lidocaine used for local anesthesia micro puncture kit used to gain access once free flow blood was seen modified Seldinger technique was utilized to place a 9 [place]ian sheath into the left common femoral vein. Next a venogram was performed. Next intravascular ultrasound was done over glidewire and interrogation showed no significant compression noted on left common external iliac or common femoral vein. Next Omni flush catheter was then used to direct a Glidewire to the right common femoral vein. Omni flush catheter was then advanced a venogram was performed of the right common femoral vein. Next Omni flush catheter was removed IVUS catheter was then used to interrogate right common iliac external iliac and common femoral vein. Findings showed significant compression right external iliac vein. Glidewire was kept in place and used as a landmark and 2% lidocaine was used for local anesthesia micro puncture kit was used to gain access once free flow blood was seen modified Seldinger technique was utilized to place a 9 [place] sheath into the right common femoral vein. Next a venogram was performed once more intravascular ultrasound was then done to use as markers and this was followed by placement of a 16 mm x 120 mm Medtronic venous self expanding stent to the right common iliac vein and external iliac vein. Follow up intravascular ultrasound revealed no evidence of residual compression. At end of case both sheaths were pulled using manual pressure and no complications occurred. FINDINGS: [] Critical compression right external iliac vein at 51% Patent left common iliac and external iliac vein stent IMPRESSION: [] Successful stent placement to right common and external iliac vein with the use of a 16 mm x 120 mm Medtronic venous self expanding stent PLAN: [] Monitor patient in the patient for the next 3-4 hours Ambulate in 2 hours Discharge home this afternoon Follow up with Dr. Ghotra 1-2 weeks ABRAHAN GHOTRA MD Apr 30, 2025 08:30
[2025-04-30] MEDS ORDERED: CLOP75TA32 PO (10:06)
--- NOTE | 2025-04-30 10:25 | NUR ---
BOTH PT AND FRIEND GIVEN VERBAL AND WRITTEN DISCHARGE INSTRUCTIONS. IV REMOVED SITE ASYMPTOMATIC. BILATERAL GROINS SOFT ASYMPTOMATIC. FRIEND DRIVING PT TAKEN OUT VIA WHEELCHAIR
== END 2025-04-30 10:50 | disposition home or self-care (01) ==
LOC: DAH 05:49
PROVIDERS: ATTEND Internal Medicine Cardiovascular Disease
DX: I87.1 Compression of vein (principal); I87.2 Venous insufficiency (chronic) (peripheral); I87.312 Chronic venous hypertension (idiopathic) with ulcer of left lower extremity; I10 Essential (primary) hypertension; E78.5 Hyperlipidemia, unspecified; E66.9 Obesity, unspecified; I73.9 Peripheral vascular disease, unspecified; Z98.42 Cataract extraction status, left eye; Z68.30 Body mass index [BMI] 30.0-30.9, adult; Z98.41 Cataract extraction status, right eye; Z88.0 Allergy status to penicillin; Z88.8 Allergy status to other drugs, medicaments and biological substances; Z95.820 Peripheral vascular angioplasty status with implants and grafts; Z79.01 Long term (current) use of anticoagulants; Z79.899 Other long term (current) drug therapy
CPT/HCPCS: 80048; 85025; 85610; 85730; 36415; 37238; 75820; 37252; 37253 ×5; J1100; C1876; C1769; C1894 ×3; C1753; J3010; J3490 ×2; J2919; J2003; J0360; J1644 ×2; J2250; J2704; J2405; J2371; Q9967; A4215; A4335; A4222; A4221; A4663; A4216; A4606; A4223 ×3; A4554; 75822; J2710

== ENCOUNTER 2025-06-16 12:41 | Observation (INO) | payer OTHER, MEDICAID ==
[~2025-06-16] VITALS: Ht 162.6 cm; Wt 79.8 kg
[~2025-06-16 12:41] MED LIST changes: -ASCO100031 PO; +ASCO10004 PO; +CLOP75TA32 PO
--- NOTE | 2025-06-16 12:54 | ERN ---
General Chief Complaint: Chest Pain Stated Complaint: CP Time Seen by MD: 12:42 Source: patient History of Present Illness Initial Comments Patient is a an 85-year-old female coming in complaining of chest pain. Per EMS patient was having chest pain earlier today and shortly after EMS arrived her chest pain subsided. In triage her chest pain has subsided. Allergies: Coded Allergies: Penicillins (Unverified Allergy, Unknown, 11/23/16) iodine (Unverified Allergy, Unknown, 04/11/22) Home Meds Reported Medications Clopidogrel Bisulfate (Clopidogrel) 75 Mg Tablet, 1 TAB PO DAILY for 30 Days, #30 TAB 0 Refills 04/30/25 Cholecalciferol (Vitamin D3) (Vitamin D3) 50 Mcg (2000 Unit) Capsule, 50 MCG PO DAILY, CAP 04/28/25 Biotin (Biotin) 5,000 Mcg Tab.rapdis, 5000 MCG PO DAILY, TAB 04/28/25 [place]-3 Fatty Acids ([place]-3) 1,000 Mg Capsule, 500 MG PO DAILY, CAP 04/28/25 Atorvastatin Calcium (LIPITOR) 10 Mg Tab, 10 MG PO HS, TAB 04/28/25 Loratadine (Loratadine) 10 Mg Tablet, 10 MG PO HS, TAB 04/28/25 Propranolol HCl (Propranolol HCl) 10 Mg Tablet, 10 MG PO BID, TAB 04/28/25 Multivitamin with Minerals (Multiple Vitamin) 1 Each Tablet, 1 EACH PO DAILY, TAB 04/11/22 Ascorbic Acid (Vitamin C) 1,000 Mg Tablet, 1000 MG PO DAILY, TAB 04/11/22 Aspirin (Aspirin) 81 Mg Tab.chew, 81 MG PO DAILY, TAB.CHEW 04/11/22 Furosemide (Furosemide) 20 Mg Tablet, 20 MG PO 5X/WEEK, TAB 04/11/22 Losartan Potassium (Losartan Potassium) 50 Mg Tablet, 50 MG PO DAILY, TAB 04/11/22 Past Medical History Past Medical History: Diabetes-Type II, Renal Failure Past Surgical History: None Surgical History Other: STENTS Social History Social History: Negative ROS Dictation CONSTITUTIONAL: No chills, no fever, no weakness, no diaphoresis, no malaise. HEAD/FACE: No signs of trauma. EENT: No eye pain, no blurred vision, no tearing, no double vision, no ear pain, no ear discharge, no nose pain, no nasal congestion, no throat pain, no throat swelling, no mouth pain. RESPIRATORY: No cough, no orthopnea, no SOB, no stridor, no wheezing. CARDIOVASCULAR: No chest pain, no edema, no palpitations, no syncope. GASTROINTESTINAL/ABDOMINAL: No abdominal pain, no constipation, no diarrhea, no nausea, no vomiting. GENITOURINARY: No abnormal discharge, no dysuria, no frequent urination, no hematuria. No complaints of pain in the genitals. MUSCULOSKELETAL: No back pain, no gout, no joint pain, no joint swelling, no muscle pain, no muscle stiffness, no neck pain. INTEGUMENTARY: No change in color, no change in hair/nails, no dryness, no lesion, no lumps, no rash. NEUROLOGICAL/PSYCH: No anxiety, not depressed, no emotional problem, no headache, no numbness, no pre-existing deficit, no history of seizures, no tremors, no weakness. HEMATOLOGIC/LYMPHATIC: Not anemic, no history of blood clots, no apparent bleeding, no bruising, glands not swollen. All Systems Negative, Except as Noted. Physical Exam Physical Exam Dictation VITAL SIGNS: Reviewed. GENERAL APPEARANCE: Alert, oriented x3, no acute distress, obese. HEAD AND FACE: Non-traumatic. EYES: PERRL, pink conjunctivas, eyelid no trauma, anterior chamber clear. EARS: Pinnas intact and no signs of trauma or erythema. Ear canals clear and no discharge. TMs no erythema. NOSE: No discharge, no bleeding. OROPHARYNX: Mouth normal, teeth no caries, tongue pink. Pharynx clear, no erythema. Tonsils no exudates, no abscesses noted. Mucous membrane moist. NECK: Supple, non-tender, no thyromegaly, no masses, no JVD, no bruits. BREAST: Deferred. CHEST: No tenderness, no crepitus, no paradoxical movement, no retractions. LUNGS: Clear, well-ventilated, symmetric, no rales, no wheezing, no rhonchi, no stridor, good breath sounds bilaterally. HEART: Regular rate, regular rhythm, no murmur, no gallops. VASCULAR: No peripheral edema. ABDOMEN: Soft, positive bowel sounds, nondistended, no guarding, nontender, no rebound, no masses no hepatomegaly, no splenomegaly, no Mota's sign, no hernias. RECTAL: Deferred. GENITAL: Deferred. NEUROLOGICAL: Normal speech, gross motor function intact, gross sensory function intact. MUSCULOSKELETAL: Neck nontender, full range of motion, back nontender, full range of motion. EXTREMITIES: Nontender, full range of motion. SKIN: Color pink, dry, no turgor, no rash, no lacerations, no abrasions, no contusions. LYMPHATICS: Deferred. Results Laboratory and Microbiology Lab and Micro Result Laboratory Tests Test 06/16/25 13:04 06/16/25 13:42 White Blood Count 6.4 K/uL (4.8-10.8) Red Blood Count 5.26 MIL/uL (4.00-5.50) Hemoglobin 12.1 g/dL (12.0-16.0) Hematocrit 38.6 % (36-48) Mean Corpuscular Volume 73.4 fL (79-99) L Mean Corpuscular Hemoglobin 23.0 pg (27.0-33.0) L Mean Corpuscular Hemoglobin Concent 31.3 g/dL (32.0-36.0) L Red Cell Distribution Width 15.9 % (11.0-15.5) H Platelet Count 311 K/uL (130-400) Mean Platelet Volume 9.2 fL (7.5-10.5) Immature Granulocyte % (Auto) 0.5 % (0-1) Neutrophils (%) (Auto) 56.5 % (40.0-77.0) Lymphocytes (%) (Auto) 22.8 % (21.0-51.0) Monocytes (%) (Auto) 14.1 % (3.0-13.0) H Eosinophils (%) (Auto) 5.3 % (0.0-8.0) Basophils (%) (Auto) 0.8 % (0.0-5.0) Neutrophils # (Auto) 3.6 K/uL (1.8-7.7) Lymphocytes # (Auto) 1.5 K/uL (1.0-4.8) Monocytes # (Auto) 0.9 K/uL (0.1-1.0) Eosinophils # (Auto) 0.34 K/uL (0.00-0.70) Basophils # (Auto) 0.05 K/uL (0.00-0.20) Absolute Immature Granulocyte (auto 0.03 K/uL (0-1) Nucleated Red Blood Cells 0.0 % (0.0-0.19) Red Blood Cell Morphology See comments Sodium Level 138 mmol/L (136-145) Potassium Level 4.4 mmol/L (3.5-5.1) Chloride Level 101 mmol/L (101-111) Carbon Dioxide Level 34 mmol/L (21-32) H Blood Urea Nitrogen 12 mg/dL (7-18) Creatinine 0.7 mg/dL (0.5-1.0) Glomerular Filtration Rate Calc 85 mL/min (>90) Random Glucose 109 mg/dL (70-105) H Total Calcium 9.5 mg/dL (8.5-10.1) Magnesium Level 1.90 mg/dL (1.80-2.40) Troponin I High Sensitivity 9 ng/L (4-50) Urine Color COLORLESS (YELLOW) Urine Appearance CLOUDY (CLEAR) H Urine pH 7.0 (5.0-8.0) Urine Specific [place] 1.004 (1.001-1.031) Urine Protein NEGATIVE mg/dL (NEGATIVE) Urine Glucose (UA) NEGATIVE mg/dL (NEGATIVE) Urine Ketones NEGATIVE mg/dL (NEGATIVE) Urine Occult Blood NEGATIVE (NEGATIVE) Urine Nitrate NEGATIVE (NEGATIVE) Urine Bilirubin NEGATIVE mg/dL (NEGATIVE) Urine Urobilinogen 0.2 mg/dL (0.2-1.0) Urine Leukocyte Esterase 250 Jim/uL (NEGATIVE) H Urine RBC 6-10 /HPF (0-1) H Urine WBC 2-5 /HPF (0-1) H Urine Squamous Epithelial Cells FEW /HPF (0-2) Urine Non-Squamous Epithelial Cells 2 /HPF (0-2) Urine Transitional Epithelial Cells Rare /HPF (None Seen) Urine Bacteria None /HPF (None Seen) Urine Hyaline Casts 2-5 /LPF (0-1 /LPF) H Labs Reviewed?: Yes EKG/XRAY/US/CT/MRI EKG Comment [id number] time 12:41 p.m. Ventricular rate 63 Sinus rhythm [place] [address] wave elevation or depression MDM MDM: Differential diagnosis: UTI, chest pain, Rationale: Tests considered and ordered secondary to shared decision making include: Previous outside records reviewed: Old ER visits. Risk of complication and/or morbidity or mortality of patient management: None Medications-Per medication reconciliation Need for hospitalization: Patient does meet criteria for hospitalization. Need for emergency major/minor surgery: No There are no social concerns with this patient. Prescription drug management Prescriptions will include symptomatic care Patient's prior external medical records from other ER visits were reviewed by me as indicated. Prior testing and results from previous visits were reviewed. Prior tests were taken into account with medical decision making and resource utilization, independent historian/historians were used to obtain complete medical history. I independently interpreted the test that were performed, results were reviewed by me and considered findings on radiology if ordered. Medical management and examination interpretation discussions were had by me with other qualified healthcare professionals as indicated for the patient's care. Patient will be admitted under the care of hospitalist group for ongoing management. ED Course Orders Procedure Category Date Status Time Cbc With Differential LAB 06/16/25 Complete 12:43 Chest 1vw RAD 06/16/25 Resulted 12:43 12 Lead Ekg Tracing- EKG 06/16/25 Complete Technical 12:43 Magnesium LAB 06/16/25 Complete 12:43 Troponin I High LAB 06/16/25 Complete Sensitivity 12:43 Urinalysis Profile LAB 06/16/25 Complete 12:43 Basic Metabolic Panel LAB 06/16/25 Complete 12:43 Culture Urine TG 06/16/25 Logged 13:56 Levofloxacin 500 PHA 06/16/25 In Process Mg/D5w 100 Ml 14:30 Current Medications Medications (Trade) Dose Ordered Sig/Leroy Route PRN Reason Start Time Stop Time Status Last Admin Dose Admin Levofloxacin/ Dextrose 100 ml @ 100 mls/hr Q24H IV 06/16/25 14:30 06/26/25 14:29 06/16/25 14:54 Vital Signs Date Time Temp Pulse Resp B/P (MAP) Pulse Ox O2 Delivery O2 Flow Rate FiO2 06/16/25 12:45 97.7 66 16 144/64 96 Room Air* 0 21 06/16/25 12:42 97.7 66 16 144/64 96 Room Air 0 DX & DISP Disposition: Inpatient Decision to Admit Time: 14:56 Departure Impression: Primary Impression: UTI (urinary tract infection) Condition: Stable Referrals: ALBINO SHANE MD (PCP) KEYONNA MARTINEZ MD Jun 16, 2025 12:54
--- NOTE | 2025-06-16 13:04 | EKG ---
[facility] Test Date: 2025-06-16 Test Time: 12:41:02 Pat Name: MARIVEL GIL Department: [facility]H Room: ED Gender: F Nut Sheller: [id number] : 1940 Requested By: KEYONNA MARTINEZ Order Number: [id number] Reading MD: Mandeep Olivo Measurements Intervals Landing Rate: 63 P: 44 DE: 165 QRS: 47 QRSD: 151 T: -3 QT: 432 QTc: 444 Interpretive Statements Sinus rhythm Right bundle branch block Compared to ECG 04/11/2022 16:22:32 Sinus bradycardia no longer present Electronically Signed On 06-16-2025 15:54:34 CDT by Mandeep Olivo Please click the below link to view image of tracing.
[2025-06-16 13:13] LABS: IMMATURE GRANULOCYTE ABSOLUTE 0.03 K/uL (0-1); NUCLEATED RED BLOOD CELLS 0.0 % (0.0-0.19); PLATELET COUNT (AUTO) 311 K/uL (130-400); RED BLOOD CELL COUNT(AUTO) 5.26 MIL/uL (4.00-5.50); RED CELL DISTRIBUTION WIDTH 15.9 % (11.0-15.5); WHITE BLOOD COUNT (AUTO) 6.4 K/uL (4.8-10.8)
[2025-06-16 13:22] LABS: CREATININE 0.7 mg/dL (0.5-1.0); GLOMERULAR FILTR. RATE CALC 85.0 mL/min (>90); GLUCOSE,RANDOM 109.0 mg/dL (70-105); SODIUM SERUM 138.0 mmol/L (136-145); UREA NITROGEN, BLOOD 12.0 mg/dL (7-18)
[2025-06-16 13:50] LABS: APPEARANCE,URINE CLOUDY (CLEAR); GLUCOSE, URINE (UA) NEGATIVE (NEGATIVE); LEUKOCYTE ESTERASE ,URINE 250 Leu/uL (NEGATIVE); NITRATE,URINE NEGATIVE (NEGATIVE); OCCULT BLOOD,URINE NEGATIVE (NEGATIVE)
[2025-06-16 13:56] LABS: ADD UA MICROSCOPIC YES
[2025-06-16 13:59] LABS: NON-SQUAMOUS EPITHELIAL CELL 2 /HPF (0-2); SQUAMOUS EPITHELIAL CELL,UR FEW /HPF (0-2)
--- NOTE | 2025-06-16 14:14 | HMCIMG ---
EXAM: CR Chest, 1 View. CLINICAL HISTORY: cp COMPARISON: Radiograph dated December 18, 2016 Findings: AP view of the chest is submitted. Left basilar airspace disease may reflect atelectasis and/or an infectious process. Small left pleural effusion. No pneumothorax. Heart size is stable. Mild central pulmonary vascular congestion. IMPRESSION: 1. Left basilar airspace disease, possibly representing atelectasis or infection, with small left pleural effusion. 2. Mild central pulmonary vascular congestion. /[place]
[2025-06-16] MEDS ORDERED: NITROGLYCERIN 0.4 MG SL TAB SL PRN (15:30)
[2025-06-16] MEDS ORDERED: MAGNESIUM 2GM PREMIX 50ML 50 ML IV SCH (16:00)
[2025-06-16 16:04] LABS: ASPARTATE AMINOTRANSFERASE 28.0 U/L (10-37); TOTAL PROTEIN, SERUM 7.7 g/dL (6.0-8.3)
[2025-06-16 16:23] LABS: SARS-CoV-2, RNA, NAAT NEGATIVE SARS CoV-2 (NEGATIVE)
--- NOTE | 2025-06-16 16:27 | NUR ---
DCP:HOME Pt currently lives alone in her home. Pt does have a walker and cane that she uses to ambulate. Pt states that she has a provider that goes to her home 8hrs a day everyday to assist her with all ADLs, home mangement, and meals. Pt states that she also has respite services that go to her home and stay with her the night whenever she ends up discharging from a hospital. PCP is Dr. Ramon Dawn and uses [facility] for any RX needs. At MD pt will want to go home and states that friends can assist her with transportation. Addendum: 06/16/25 at 1630 by RICKY TRAN SS Amended: Links added.
[2025-06-16 16:31] LABS: INFLUENZA TYPE A Negative For Type A (NEGATIVE); INFLUENZA TYPE B Negative For Type B (NEGATIVE)
--- NOTE | 2025-06-16 17:05 | CONS ---
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 on 09/05/22, s/p right common external iliac vein stenting with a 16 x 120 mm Medtronic venous self-expanding stent on 04/30/2025, BLE arterial doppler 10/2024 demonstrated PAD, s/p peripheral angiography on revealed moderate disease of tibioperoneal trunk with total occlusion of the left PT and AT in the mid section with reconstitution of PT via the peroneal distally supplying the foot, lower extremity CTA with runoff on 12/30/2024 revealed severe infrapopliteal disease with single-vessel runoff on the right and diseased but at least two-vessel runoff on the left, chronic left york ulcer, 2D echo on 10/25/2024 with an LVEF of 65-70%, normal wall motion, grade 1 diastolic dysfunction, and mild pulmonary hypertension with RVSP of 44 mmHg who presented to the ED with complains of chest pressure. Cardiology has been consulted for chest pressure. The patient states she was sitting in her recliner when she developed left sternal chest discomfort. She described the pain as pressure-like with an 8/10 intensity and was self-limited to approximately 20-30 minutes. There were no accompanying symptoms nor aggravating factors. Troponin of 9, additional cardiac enzymes are due at 1800 and midnight. EKG demonstrated NSR with a hr of 63bpm with a RBBB, no acute ischemia noted. BNP of 97. Chest x-ray demonstrated pulmonary vascular congestion and a left pleural effusion. The patient currently denies chest pain, chest pressure, palpitations, dizziness, shortness of breath, orthopnea, PND or cough. Past Medical History: As per HPI and summarized below Past Surgical History: Bilateral cataract surgery Wrist fracture repair in 04/2022 Family History: The patient's father had heart disease. The patient's mother had diabetes mellitus type 2. Social History: The patient lives alone. Habits: The patient denies alcohol, tobacco or illicit drug use. Home Meds: Home medications pending reconciliation. Per last visit at the [facility] [address] on 05/20/2025, current medication list as followed: Clopidogrel Bisulfate 75 MG Tablet 1 tablet Orally Once a day Aspirin EC Low Dose 81 MG Tablet Delayed Release 1 tablet Orally Once a day Tylenol 8 Hour 650 MG Tablet Extended Release 2 tablets as needed Orally every 8 hrs Loratadine 10 MG Tablet 1 tablet Orally Once a day Multivitamin Women - Tablet as directed Orally Biotin 5000 MCG Tablet 1 tablet Orally Once a day Fish Oil 1200 MG Capsule 1 capsule Orally Once a day Atorvastatin Calcium 10 MG Tablet 1 tablet Orally Once a day Vitamin C 1000 MG Tablet 1 tablet Orally Once a day Furosemide 20 MG Tablet 1 tablet Orally Saturday, Sat, Saturday Vitamin D3 125 MCG (5000 UT) Capsule 1 capsule Orally Once a day Propranolol HCl 20 MG Tablet 1 tablet Orally Once a day Losartan Potassium 50 MG Tablet 1 tablet Orally Once a day Xarelto 2.5 MG Tablet 1 tablet with food Orally Twice a day Current Meds: Medications Dose Ordered Sig/Leroy Start Time Stop Time Status Last Admin Levofloxacin/ Dextrose 100 ml @ 100 mls/hr Q24H 06/16/25 14:30 06/26/25 14:29 06/16/25 14:54 Nitroglycerin 0.4 mg AD PRN 06/16/25 15:30 07/16/25 15:29 Clopidogrel Bisulfate 75 mg DAILY 06/17/25 09:00 07/17/25 08:59 Famotidine 20 mg BID 06/16/25 21:00 07/16/25 20:59 Furosemide 20 mg DAILY 06/17/25 09:00 07/17/25 08:59 Acetaminophen 650 mg Q4H PRN 06/16/25 15:30 07/16/25 15:29 Ondansetron HCl 4 mg Q6H PRN 06/16/25 15:30 07/16/25 15:29 Losartan Potassium 50 mg DAILY 06/17/25 09:00 07/17/25 08:59 Enoxaparin Sodium 30 mg DAILY 06/17/25 09:00 07/17/25 08:59 Magnesium Sulfate 50 ml @ 0 mls/hr PROTOCOL 06/16/25 16:00 07/16/25 15:59 Review of Systems: CONST: No fever, fatigue, or weight changes. EYES: No recent vision problems. ENT: No congestion, ear pain, or sore throat. C/V: No chest pain, palpitations, or edema. RESP: No cough, congestion, wheezing or shortness of breath. GI: No abdominal pain, nausea, vomiting, constipation, or diarrhea. : No incontinence or dysuria. SKIN: Admits to left lower extremity [place]ork ulceration. NEURO: No headache, focal numbness or weakness, dizziness, or seizures. PSYCH: No depression or anxiety. HEME: No abnormal bruising or bleeding. LYMPH: No swollen glands. Physical Examination: GENERAL: No acute distress. HEAD: Normal with no signs of head trauma. EYES: PERRLA, EOMI, conjunctiva and sclera normal. ENT: Hearing grossly intact, normal oropharynx. NECK: Supple without JVD. There is no tenderness, lymphadenopathy, or masses. No thyromegaly. Normal carotid upstrokes without bruits. LUNGS: Clear breath sounds bilaterally. No wheezes, or rhonchi. HEART: Normal rate and rhythm. Normal S1 and S2 without murmurs, gallop or rub. VASC: Right DP pulse 2 +. ABD: Bowel sounds normal, soft, nontender, no masses, no organomegaly. No audible bruits. : Not examined LYMPH: No lymphadenopathy noted. EXT: No clubbing, cyanosis or edema. SKIN: Left lower extremity wrapped with [place] dressing, darkened discoloration noted to the dorsal aspect of foot. NEURO: Awake, alert, and oriented x3. No focal sensory or strength deficits noted. Vital Signs (last 8hr) Date Time Temp Pulse Resp B/P (MAP) Pulse Ox O2 Delivery O2 Flow Rate FiO2 06/16/25 15:00 97.9 73 15 143/68 97 Room Air* 0 21 06/16/25 12:45 97.7 66 16 144/64 96 Room Air* 0 21 06/16/25 12:42 97.7 66 16 144/64 96 Room Air 0 Laboratory: Hematology Labs: Test 06/16/25 13:04 Range/Units White Blood Count 6.4 4.8-10.8 K/uL Red Blood Count 5.26 4.00-5.50 MIL/uL Hemoglobin 12.1 12.0-16.0 g/dL Hematocrit 38.6 36-48 % Mean Corpuscular Volume 73.4 L 79-99 fL Mean Corpuscular Hemoglobin 23.0 L 27.0-33.0 pg Mean Corpuscular Hemoglobin Concent 31.3 L 32.0-36.0 g/dL Red Cell Distribution Width 15.9 H 11.0-15.5 % Platelet Count 311 130-400 K/uL Mean Platelet Volume 9.2 7.5-10.5 fL Immature Granulocyte % (Auto) 0.5 0-1 % Neutrophils (%) (Auto) 56.5 40.0-77.0 % Lymphocytes (%) (Auto) 22.8 21.0-51.0 % Monocytes (%) (Auto) 14.1 H 3.0-13.0 % Eosinophils (%) (Auto) 5.3 0.0-8.0 % Basophils (%) (Auto) 0.8 0.0-5.0 % Neutrophils # (Auto) 3.6 1.8-7.7 K/uL Lymphocytes # (Auto) 1.5 1.0-4.8 K/uL Monocytes # (Auto) 0.9 0.1-1.0 K/uL Eosinophils # (Auto) 0.34 0.00-0.70 K/uL Basophils # (Auto) 0.05 0.00-0.20 K/uL Absolute Immature Granulocyte (auto 0.03 0-1 K/uL Nucleated Red Blood Cells 0.0 0.0-0.19 % Red Blood Cell Morphology See comments Chemistry Labs: Test 06/16/25 13:04 Range/Units Sodium Level 138 136-145 mmol/L Potassium Level 4.4 3.5-5.1 mmol/L Chloride Level 101 101-111 mmol/L Carbon Dioxide Level 34 H 21-32 mmol/L Blood Urea Nitrogen 12 7-18 mg/dL Creatinine 0.7 0.5-1.0 mg/dL Glomerular Filtration Rate Calc 85 >90 mL/min Random Glucose 109 H 70-105 mg/dL Total Calcium 9.5 8.5-10.1 mg/dL Magnesium Level 2.00 1.80-2.40 mg/dL Total Bilirubin 0.4 0.2-1.0 mg/dL Direct Bilirubin 0.1 0.0-0.3 mg/dL Aspartate Amino Transf (AST/SGOT) 28 10-37 U/L Alanine Aminotransferase (ALT/SGPT) 21 12-78 U/L Alkaline Phosphatase 90 50-136 U/L Troponin I High Sensitivity 9 4-50 ng/L B-Type Natriuretic Peptide 97 0-100 pg/mL Total Protein 7.7 6.0-8.3 g/dL Albumin 2.8 L 3.5-5.0 g/dL Diagnostics / Radiology: Impression and Plan: Chest pressure Hypertension Dyslipidemia Venous insufficiency Iliac vein stenosis s/p left common and external iliac vein stenting on 09/05/22 s/p right common external iliac vein stenting with a 16 x 120 mm Medtronic venous self-expanding stent on 04/30/2025 Lower extremity arterial Doppler 10/2024 demonstrated PAD s/p peripheral angiography on 10/26/2024 revealed moderate disease of tibioperoneal trunk with total occlusion of the left PT and AT in the mid sectio n with reconstitution of PT via the peroneal distally supplying the foot BLE CTA with runoff on 12/30/2024 revealed severe infrapopliteal disease with single-vessel runoff on the right and diseased but at least two-vessel runoff on the left Chronic left [place]ork ulcer 2D echo on 10/25/2024 with an LVEF of 65-70%, normal wall motion, grade 1 diastolic dysfunction, and mild pulmonary hypertension with RVSP of 44 mmHg Chest pressure Troponin of 9, additional cardiac enzymes are due at 1800 and midnight EKG demonstrated NSR with a hr of 63bpm with a RBBB, no acute ischemia noted -If cardiac enzymes are negative, keep the patient NPO after midnight for a Lexiscan stress test in AM to assess for ischemia -Pending 2D Echocardiogram -Restart home medication of Losartan 50mg daily, Propranolol 20mg daily, Plavix 75mg daily and Atorvastatin 10mg qhs RAVINDER BARBER Jun 16, 2025 17:05
--- NOTE | 2025-06-16 17:45 | HMCIMG ---
EXAM: US Right Lower Extremity Nonvascular Soft Tissue Ultrasound CLINICAL HISTORY: Right Leg swelling. TECHNIQUE: Real-time ultrasound scan of the Right lower extremity with image documentation, including compression, color Doppler, and spectral waveform analysis from the common femoral vein through the calf veins. Right lower extremity venous duplex ultrasound performed with compression, color Doppler, and spectral waveform analysis from the common femoral vein through the calf veins. COMPARISON: None available. FINDINGS: SOFT TISSUES: No abnormal fluid collections or soft tissue masses identified. RIGHT LOWER EXTREMITY: Common femoral, femoral (proximal, mid, distal), popliteal, posterior tibial, and peroneal veins are patent and fully compressible. Normal flow augmentation and color Doppler signal. No evidence of intraluminal thrombus. IMPRESSION: 1. No evidence of deep vein thrombosis (DVT) in Right lower extremity. EXAM: US Left Lower Extremity Nonvascular Soft Tissue Ultrasound CLINICAL HISTORY: Left Leg swelling. TECHNIQUE: Real-time ultrasound scan of the Left lower extremity with image documentation, including compression, color Doppler, and spectral waveform analysis from the common femoral vein through the calf veins. Left lower extremity venous duplex ultrasound performed with compression, color Doppler, and spectral waveform analysis from the common femoral vein through the calf veins. COMPARISON: None available. FINDINGS: SOFT TISSUES: No abnormal fluid collections or soft tissue masses identified. LEFT LOWER EXTREMITY: Common femoral, femoral (proximal, mid, distal), popliteal, posterior tibial, and peroneal veins are patent and fully compressible. Normal flow augmentation and color Doppler signal. No evidence of intraluminal thrombus. IMPRESSION: 1. No evidence of deep vein thrombosis (DVT) in Left lower extremity. /[place]
--- NOTE | 2025-06-16 17:46 | NUR ---
Report given to PRETTY Mcgill. Pt's V/S Temp 97.8, HR 73, Resp 15, O2 Sat 97%, B/P 143/68mmHg. Pt. transported via stretcher to Room 406. No acute distress noted.
[2025-06-16 18:05] VITALS: BP 192/100; PULSE 90; RESP 15; TEMP 98.1
--- NOTE | 2025-06-16 18:05 | NUR ---
UNIT ARRIVAL RECEIVED PATIENT FROM ER. PATIENT AWAKE AND ALERT. NO SIGNS OF DISTRESS NOTED. PATIENT REPORTS NO PAIN AT THIS TIME. PATIENT WITH HX OF CHRONIC LL LEG ULCER. PATIENT SEES DR. MANCILLA EVERY SATURDAY FOR WOUND CARE. ADMISSION PHOTO NOT OBTAINED. PATIENT REFUSED. PATIENT PREFERS TO WAIT FOR WOUND CARE TO UNWRAP DRESSING.
[2025-06-16 18:10] VITALS: O2SAT 95
[2025-06-16 18:54] LABS: CREATINE KINASE, TOTAL 50.0 U/L (21-232)
[2025-06-16 20:00] VITALS: BP 154/74; PULSE 78; RESP 18; TEMP 98.3
[2025-06-16 20:30] VITALS: O2SAT 96
[2025-06-16] MEDS: FAMOTIDINE 20MG TAB PO SCH (20:32)
--- NOTE | 2025-06-16 21:17 | HP ---
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 Patient states that she was sitting in her recliner today when she developed moderate intensity chest pressure/chest tightness that lasted for about 20-30 minutes. Symptoms were located close with the midsternal/left sternal border. Patient denied any significant shortness of breath with the symptoms. Denied any diaphoresis or upper or lower extremity weakness. Patient does report having history of venous insufficiency and has previously undergone stenting to the left common and external iliac vein. She also also has a history of peripheral arterial disease. She is followed by Dr. Ghotra as outpatient and reports having had peripheral intervention done. Denies previous history of [place] or cardiac stenting. Denies significant PND. She does report having chronic history of lower extremity swelling and is on Lasix as outpatient. On presentation to the hospital, patient was noted to be afebrile and hemodynamically stable. Labs on presentation showed WBC count of 6400, hemoglobin 12.1, platelet count of 534825. BMP remarkable for sodium of 138, potassium 4.4, CO2 of 34, BUN of 12, creatinine of 0.7. cardiac panel was noted to be negative. Urinalysis showed cloudy urine with leukocyte esterase positive mild pyuria. Chest x-ray showed mild congestion. Patient will be admitted for further evaluation of atypical chest pain. Cardiac panel will be trended to rule out active ACS. 2D echocardiogram will be obtained to assess LVF. Patient will receive broad-spectrum antibiotics with levofloxacin for management of UTI. REVIEW OF SYSTEMS CONSTITUTIONAL: Denies fevers, chills, or night sweats. No unintentional weight loss reported. NEUROLOGICAL: Denies headache, amaurosis fugax, motor weakness, sensory deficit, vertigo/spinning sensation, gait abnormalities, or tremors. ENT: No hearing loss, otalgia, otorrhea, rhinitis, rhinorrhea, hoarseness, or sore throat. CARDIOVASCULAR: reports having symptoms of chest tightness/ pressure PULMONARY: Denies any shortness of breath, cough, phlegm/sputum, hemoptysis, pleuritic chest pain. SLEEP: Denies morning headaches, daytime somnolence or napping. Denies difficulty falling asleep, staying asleep, waking from sleep. Denies knowledge of snoring. GASTROINTESTINAL: Denies any type of dysphagia to either liquids or solids. Denies nausea, vomiting, pyrosis, early satiety, abdominal pain, diarrhea, constipation, or changes in stool consistency or caliber. Denies coffee-ground emesis, hematemesis, hematochezia, or melanotic stools. GENITOURINARY: Denies frequency, urgency, nocturia, hematuria or incontinence (Storage/Irritative symptoms.) Low urinary stream, straining to void, urinary intermittency or hesitancy, splitting of the voiding stream, terminal dribbling. ENDOCRINOLOGIC: Denies polyuria, polydipsia, polyphagia or heat/cold intolerances. HEMATOLOGIC: Denies thrombophilia/previous clots, or coagulopathy/bleeding disorders. ONCOLOGIC: Denies personal history of malignancy. DERMATOLOGIC: Denies rashes or pruritus. PSYCHIATRIC: Denies any suicidal or homicidal ideation. Denies hallucinations. PAST MEDICAL HISTORY: Hypertension, hyperlipidemia, history of venous insufficiency, history of iliac vein stenosis s/p left common and external iliac vein stenting on 09/05/22, s/p right common external iliac vein stenting with a 16 x 120 mm [employer] venous self-expanding stent on 04/30/2025, BLE arterial doppler 10/2024 demonstrated PAD, history of peripheral arterial disease, history of chronic left leg venous insufficiency ulcer PAST SURGICAL HISTORY: Reports Having had prior history of peripheral venogram/arteriogram, history of bilateral cataract eye surgery, history of left wrist fracture repair PAST SOCIAL HISTORY: Denies active smoking or alcohol consumption, patient has provider at home FAMILY HISTORY: Denies pertinent family history Allergies: Penicillin, iodine Home medications: Plavix 75 mg daily, atorvastatin 10 mg daily, Lasix 20 mg 5 times per week, biotin 5000 mcg daily, vitamin D3 50 mcg daily, loratadine 10 mg at bedtime, Watson 3 fatty acid 500 mg daily, propranolol 10 mg b.i.d., aspirin 81 mg daily, losartan 50 mg daily Coded Allergies: Penicillins (Unverified Allergy, Unknown, 11/23/16) iodine (Unverified Allergy, Unknown, 04/11/22) PHYSICAL EXAM GENERAL APPEARANCE: The patient is awake, alert, and oriented, in no acute cardiopulmonary distress. NEUROLOGICAL: Cranial nerves II-XII grossly intact. Motor is 5/5 in bilateral upper and lower extremities proximal to distal. No sensory deficits. HEENT: Face is symmetric. Pupils are equal and reactive. Extraocular movements are intact. NECK: Supple. No JVD. No thyromegaly. No submental, submandibular, pre- /postauricular, occipital or supraclavicular lymphadenopathy. CHEST: Normal chest expansion. No Telemetry. LUNGS: Absence of any rales, rhonchi or any wheezing. CARDIOVASCULAR: Regular. S1 and S2 normal. No appreciable rubs, murmurs or gallops. ABDOMEN: Soft, nontender, and nondistended. There is no rebound, voluntary guarding, or rigidity. : Deferred. No Streeter. EXTREMITIES: 1+ pitting edema noted of the bilateral lower extremity, left leg is wrapped in dressing and patient reports having history of chronic ulcer SKIN: No skin breakdown. Vital Sign (Last 24 Hours) 06/16/25 06/16/25 18:10 20:00 Temp 98.2 Pulse 78 Resp 18 B/P (MAP) 154/74 Pulse Ox 96 O2 Delivery Room Air O2 Flow Rate 0 FiO2 21 LABS: Laboratory: Test 06/16/25 18:26 06/16/25 16:01 06/16/25 13:42 06/16/25 13:04 Range/Units Total Creatine Kinase 50 21-232 U/L Troponin I High Sensitivity 10.1 4-50 ng/L Influenza Type A Antigen Negative For Type A NEGATIVE Influenza Type B Antigen Negative For Type B NEGATIVE SARS-CoV-2, RNA, NAAT NEGATIVE SARS CoV-2 NEGATIVE Urine Color COLORLESS YELLOW Urine Appearance CLOUDY H CLEAR Urine pH 7.0 5.0-8.0 Urine Specific [place] 1.004 1.001-1.031 Urine Protein NEGATIVE NEGATIVE mg/dL Urine Glucose (UA) NEGATIVE NEGATIVE mg/dL Urine Ketones NEGATIVE NEGATIVE mg/dL Urine Occult Blood NEGATIVE NEGATIVE Urine Nitrate NEGATIVE NEGATIVE Urine Bilirubin NEGATIVE NEGATIVE mg/dL Urine Urobilinogen 0.2 0.2-1.0 mg/dL Urine Leukocyte Esterase 250 H NEGATIVE Jim/uL Urine RBC 6-10 H 0-1 /HPF Urine WBC 2-5 H 0-1 /HPF Urine Squamous Epithelial Cells FEW 0-2 /HPF Urine Non-Squamous Epithelial Cells 2 0-2 /HPF Urine Transitional Epithelial Cells Rare None Seen /HPF Urine Bacteria None None Seen /HPF Urine Hyaline Casts 2-5 H 0-1 /LPF /LPF White Blood Count 6.4 4.8-10.8 K/uL Red Blood Count 5.26 4.00-5.50 MIL/uL Hemoglobin 12.1 12.0-16.0 g/dL Hematocrit 38.6 36-48 % Mean Corpuscular Volume 73.4 L 79-99 fL Mean Corpuscular Hemoglobin 23.0 L 27.0-33.0 pg Mean Corpuscular Hemoglobin Concent 31.3 L 32.0-36.0 g/dL Red Cell Distribution Width 15.9 H 11.0-15.5 % Platelet Count 311 130-400 K/uL Mean Platelet Volume 9.2 7.5-10.5 fL Immature Granulocyte % (Auto) 0.5 0-1 % Neutrophils (%) (Auto) 56.5 40.0-77.0 % Lymphocytes (%) (Auto) 22.8 21.0-51.0 % Monocytes (%) (Auto) 14.1 H 3.0-13.0 % Eosinophils (%) (Auto) 5.3 0.0-8.0 % Basophils (%) (Auto) 0.8 0.0-5.0 % Neutrophils # (Auto) 3.6 1.8-7.7 K/uL Lymphocytes # (Auto) 1.5 1.0-4.8 K/uL Monocytes # (Auto) 0.9 0.1-1.0 K/uL Eosinophils # (Auto) 0.34 0.00-0.70 K/uL Basophils # (Auto) 0.05 0.00-0.20 K/uL Absolute Immature Granulocyte (auto 0.03 0-1 K/uL Nucleated Red Blood Cells 0.0 0.0-0.19 % Red Blood Cell Morphology See comments Sodium Level 138 136-145 mmol/L Potassium Level 4.4 3.5-5.1 mmol/L Chloride Level 101 101-111 mmol/L Carbon Dioxide Level 34 H 21-32 mmol/L Blood Urea Nitrogen 12 7-18 mg/dL Creatinine 0.7 0.5-1.0 mg/dL Glomerular Filtration Rate Calc 85 >90 mL/min Random Glucose 109 H 70-105 mg/dL Total Calcium 9.5 8.5-10.1 mg/dL Magnesium Level 2.00 1.80-2.40 mg/dL Total Bilirubin 0.4 0.2-1.0 mg/dL Direct Bilirubin 0.1 0.0-0.3 mg/dL Aspartate Amino Transf (AST/SGOT) 28 10-37 U/L Alanine Aminotransferase (ALT/SGPT) 21 12-78 U/L Alkaline Phosphatase 90 50-136 U/L B-Type Natriuretic Peptide 97 0-100 pg/mL Total Protein 7.7 6.0-8.3 g/dL Albumin 2.8 L 3.5-5.0 g/dL Current Medications Medications (Trade) Dose Ordered Sig/Leroy Route PRN Reason Start Time Stop Time Status Last Admin Dose Admin Acetaminophen (TYLenol 325MG TAB) 650 mg Q4H PRN PO TEMPERATURE GREATER THAN 101.5 06/16/25 15:30 07/16/25 15:29 Atorvastatin Calcium (LIPItor 10MG) 10 mg HS PO 06/16/25 21:00 07/16/25 20:59 06/16/25 20:32 10 MG Clopidogrel Bisulfate (plaVIX 75MG) 75 mg DAILY PO 06/17/25 09:00 07/17/25 08:59 Enoxaparin Sodium (Lovenox) 30 mg DAILY SQ 06/17/25 09:00 07/17/25 08:59 Famotidine (Pepcid 20mg Tab) 20 mg BID PO 06/16/25 21:00 07/16/25 20:59 06/16/25 20:32 20 MG Furosemide (LASix 20MG TAB) 20 mg DAILY PO 06/17/25 09:00 07/17/25 08:59 Hydralazine HCl (APRESOLine 20MG INJ) 10 mg Q6H PRN IV ADMINISTER FOR SBP > 170 06/16/25 19:30 07/16/25 19:29 Levofloxacin/ Dextrose 100 ml @ 100 mls/hr Q24H IV 06/16/25 14:30 06/26/25 14:29 06/16/25 14:54 100 MLS/HR Losartan Potassium (CozAAR 50 mg TAB) 50 mg DAILY PO 06/17/25 09:00 07/17/25 08:59 Magnesium Sulfate 50 ml @ 0 mls/hr PROTOCOL IV 06/16/25 16:00 07/16/25 15:59 Nitroglycerin (Nitrostat) 0.4 mg AD PRN SL CHEST PAIN 06/16/25 15:30 07/16/25 15:29 Ondansetron HCl (zoFRAN 4MG INJ) 4 mg Q6H PRN IVP NAUSEA/VOMITING 06/16/25 15:30 07/16/25 15:29 Propranolol HCl (Inderal) 20 mg DAILY PO 06/17/25 09:00 07/17/25 08:59 DIAGNOSTICS / RADIOLOGY: SERVICE 1243 REASON: cp ORDERING PHYSICIAN: KEYONNA MARTINEZ MD PROCEDURE: CXR1VW - CHEST 1VW EXAM: CR Chest, 1 View. CLINICAL HISTORY: cp COMPARISON: Radiograph dated December 18, 2016 Findings: AP view of the chest is submitted. Left basilar airspace disease may reflect atelectasis and/or an infectious process. Small left pleural effusion. No pneumothorax. Heart size is stable. Mild central pulmonary vascular congestion. IMPRESSION: 1. Left basilar airspace disease, possibly representing atelectasis or infection, with small left pleural effusion. 2. Mild central pulmonary vascular congestion. /[place] DICTATED BY: ZAC BUSH Jr., MD DATE: 06/16/251513 ELECTRONICALLY SIGNED BY: ZAC BUSH Jr., MD DATE: 06/16/251513 ASSESSMENT: Atypical chest pain/chest pressure, POA Urinary tract infection, POA Underlying history of hypertension POA History of chronic bilateral lower extremity venous insufficiency, POA Hyperlipidemia, POA History of iliac vein stenosis status post left common iliac and external iliac vein stenting in 08/2022 History of right common external iliac vein stenting in 04/2025, POA History of peripheral arterial disease, POA History of chronic venous stasis ulcer involving the left leg, POA Octogenarian, POA History of penicillin allergy, POA PLAN: Patient will be admitted under telemetry monitoring We will obtain 2D echocardiogram We will trend troponin to rule out active ACS, patient with atypical symptoms of chest pain/chest pressure Consultation with Cardiology will be requested, plan for stress test tomorrow Chest x-ray showed mild pulmonary vascular congestion with small left-sided pleural effusion, we will check flu and COVID panel, patient denies significant shortness of breath or productive cough, we will follow up results of 2D echocardiogram to rule out heart failure We will keep patient on IV antibiotics with levofloxacin due to underlying history of penicillin allergy for management of UTI Patient we will continue with her home antihypertensives including losartan, we will resume to Lasix 20 mg daily, propranolol 20 mg daily Patient to continue with antiplatelet therapy with aspirin and Plavix All labs will be repeated in the morning Patient to continue with wound care with Dr. Espino while inpatient Date of service: 06/16/2025 Plan of care was discussed with patient at bedside, Emanuel Chen MD Advanced Care Planning: Which of the following were discussed: Hospice care: Yes __ No _X_ Therapeutic options: Yes _X_ No __ Advance directives: Yes _X_ No __ Other discussions: Discussed with who?: Patient Voluntary nature of this service was explained to the patient? Yes _x_ No __ Amount of time spent: 20 minutes EMANUEL CHEN MD Jun 16, 2025 21:17
[2025-06-17] VITALS: BP 158/76; PULSE 93; RESP 20; TEMP 98.3
[2025-06-17 01:10] LABS: CREATINE KINASE, TOTAL 48.0 U/L (21-232)
[2025-06-17 04:00] VITALS: BP 135/64; PULSE 94; RESP 18; TEMP 98.2
[2025-06-17 04:02] LABS: IMMATURE GRANULOCYTE ABSOLUTE 0.02 K/uL (0-1); NUCLEATED RED BLOOD CELLS 0.0 % (0.0-0.19); PLATELET COUNT (AUTO) 325 K/uL (130-400); RED BLOOD CELL COUNT(AUTO) 5.09 MIL/uL (4.00-5.50); RED CELL DISTRIBUTION WIDTH 15.5 % (11.0-15.5); WHITE BLOOD COUNT (AUTO) 4.7 K/uL (4.8-10.8)
[2025-06-17 04:23] LABS: ASPARTATE AMINOTRANSFERASE 13.0 U/L (10-37); CREATININE 0.8 mg/dL (0.5-1.0); GLOMERULAR FILTR. RATE CALC 72.0 mL/min (>90); GLUCOSE,RANDOM 120.0 mg/dL (70-105); SODIUM SERUM 138.0 mmol/L (136-145); TOTAL PROTEIN, SERUM 7.1 g/dL (6.0-8.3); UREA NITROGEN, BLOOD 14.0 mg/dL (7-18)
[2025-06-17 04:27] LABS: WBC MORPHOLOGY CONSISTENT W/DIFF
--- NOTE | 2025-06-17 07:30 | NUR ---
PATIENT OFF UNIT PATIENT OFF UNIT FOR [facility].
[2025-06-17 08:00] VITALS: BP 150/88; PULSE 86; RESP 15; TEMP 97.3; O2SAT 96
--- NOTE | 2025-06-17 08:45 | NUR ---
UNIT ARRIVAL PATIENT RETURNED TO UNIT FROM FIRST PART OF [facility].
[2025-06-17] MEDS: FATTY ACIDS PO SCH (09:00)
[2025-06-17] MEDS: OMEGA PO SCH (09:00)
[2025-06-17] MEDS ORDERED: PROPRANOLOL HCL 20 MG TAB PO SCH (09:00)
[2025-06-17] MEDS: MULTIVITAMIN TABLET PO SCH (09:00)
[2025-06-17] MEDS: Biotin 5,000 MCG PO SCH (09:00)
[2025-06-17] MEDS: PROPRANOLOL HCL 10 MG TAB PO SCH (09:00)
[2025-06-17] MEDS: Cholecalciferol (Vitamin D3) 50 MCG PO SCH (09:00)
[2025-06-17] MEDS: ENOXAPARIN SODIUM 30 MG/0.3 ML SQ SCH (09:00)
[2025-06-17] MEDS: REGADENOSON 0.4 MG/5 ML PF SYG IVP ONE ×3 (09:29→10:00)
[2025-06-17 09:42] LABS: % IRON SATURATION 26.5 % (22-44); IRON, SERUM 67.0 mcg/dL (50-170)
--- NOTE | 2025-06-17 11:50 | NUR ---
PATIENT OFF UNIT PATIENT TAKEN DOWN FOR SECOND PART OF [facility].
[2025-06-17] MEDS: ASPIRIN 81MG CHEW TAB PO SCH (11:51)
[2025-06-17 12:00] VITALS: BP 130/65; PULSE 94; RESP 15; TEMP 98.5
--- NOTE | 2025-06-17 13:00 | NUR ---
WOUND CARE WOUND CARE NURSE ON UNIT. DRESSING TO LLE UNWRAPPED. PHOTOS OBTAINED. PATIENT RECEIVES DAILY WOUND CARE AND SEES DR. MANCILLA WEEKLY AT [facility].
[2025-06-17] MEDS ORDERED: LEVO-70 PO (13:34)
--- NOTE | 2025-06-17 14:24 | NUR ---
[facility] Consult: Patient assessed by wound healing team. See wound assessment. Assessment and recommendations provided to primary nurse. Education provided. Wound care done. Addendum: 06/18/25 at 1404 by RODOLFO STOKES RN RN/ Amended: Links added.
[2025-06-17 16:00] VITALS: BP 167/69; PULSE 83; RESP 16; TEMP 98.3
--- NOTE | 2025-06-17 16:47 | NUR ---
PATIENT DISCHARGE PERIPHERAL IV REMOVED. CATHETER INTACT. DISCHARGE INSTRUCTIONS GIVEN. PRESCRIPTIONS FAXED TO PHARMACY. PATIENT AWARE TO F/U WITH DR. SHANE 06/18 AT 1PM. ALL QUESTIONS ANSWERED. PATIENT TAKEN DOWN BY WHEELCHAIR. ALL BELONGINGS SENT WITH PATIENT.
--- NOTE | 2025-06-17 16:47 | DS ---
Discharge Summary Hospital Course Summary: This is an 85-year-old female with history of hyperlipidemia, peripheral arterial disease, chronic venous insufficiency with prior iliac vein stenting, and chronic left lower extremity ulcer who presented to the ED with chest pressure/tightness of 2030 minutes duration. She denied associated shortness of breath, diaphoresis, or focal neurological symptoms. On arrival, she was afebrile, hemodynamically stable, and her initial cardiac enzymes were negative. Laboratory workup showed stable counts and renal function. Urinalysis revealed cloudy urine with leukocyte esterase positivity and mild pyuria, for which she was started on levofloxacin. Chest X-ray showed mild congestion. Cardiac panel was trended and remained negative, effectively ruling out acute coronary syndrome. Venous Doppler showed no evidence of DVT. The patient remained clinically stable without recurrent chest pain during observation. The patient is stable for discharge. She will continue her outpatient medications and will be given oral antibiotics for urinary tract infection, and the full course should be completed. Dr. Ram requested discharge and plans to follow up with the patient in his clinic, where a 2D echocardiogram will be performed and follow up on Lexiscan stress test results. She is instructed to return to the emergency department if she develops recurrent chest pain, shortness of breath, fever, or worsening leg swelling. Architectural Coating Finisher(s): CONSULTATION REPORT Name: MARIVEL GIL Acct: [id number] MR: [id number] : 1940 Admit Date: 06/16/25 RAVINDER BARBER [place] [address] [place] [id number] [facility] CARDIOLOGY CONSULTATION REPORT Cardiology consultation note dictated for Karly Proctor MD Primary fan blade aligner: Abrahan Ghotra MD Date Patient Seen: Jun 16, 2025 Requesting Physician: Sheyla Chen MD Reason for Consultation: Chest pressure History of Present Illness: This is an 85-year-old female with a past medical history of hypertension, dyslipidemia, venous insufficiency, iliac vein stenosis s/p left common and ext ernal iliac vein stenting on 09/05/22, s/p right common external iliac vein stenting with a 16 x 120 mm Medtronic venous self-expanding stent on 04/30/2025, BLE arterial doppler 10/2024 demonstrated PAD, s/p peripheral angiography on 10/26/2024 revealed moderate disease of tibioperoneal trunk with total occlusion of the left PT and AT in the mid section with reconstitution of PT via the peroneal distally supplying the foot, lower extremity CTA with runoff on 12/30/2024 revealed severe infrapopliteal disease with single-vessel runoff on the right and diseased but at least two-vessel runoff on the left, chronic left york ulcer, 2D echo on 10/25/2024 with an LVEF of 65-70%, normal wall motion, grade 1 diastolic dysfunction, and mild pulmonary hypertension with RVSP of 44 mmHg who presented to the ED with complains of chest pressure. Cardiology has been consulted for chest pressure. The patient states she was sitting in her recliner when she developed left sternal chest discomfort. She described the pain as pressure-like with an 8/10 intensity and was self-limited to approximately 20-30 minutes. There were no accompanying symptoms nor aggra vating factors. Troponin of 9, additional cardiac enzymes are due at 1800 and midnight. EKG demonstrated NSR with a hr of 63bpm with a RBBB, no acute ischemia noted. BNP of 97. Chest x-ray demonstrated pulmonary vascular congestion and a left pleural effusion. The patient currently denies chest pain, chest pressure, palpitations, dizziness, shortness of breath, orthopnea, PND or cough. Past Medical History: As per HPI and summarized below Past Surgical History: Bilateral cataract surgery Wrist fracture repair in 04/2022 Family History: The patient's father had heart disease. The patient's mother had diabetes mellitus type 2. Social History: The patient lives alone. Habits: The patient denies alcohol, tobacco or illicit drug use. Home Meds: Home medications pending reconciliation. Per last visit at the [facility] on 05/20/2025, current medication list as followed: Clopidogrel Bisulfate 75 MG Tablet 1 tablet Orally Once a day Aspirin EC Low Dose 81 MG Tablet Delayed Release 1 tablet Orally Once a day Tylenol 8 Hour 650 MG Tablet Extended Release 2 tablets as needed Orally every 8 hrs Loratadine 10 MG Tablet 1 tablet Orally Once a day Multivitamin Women - Tablet as directed Orally Biotin 5000 MCG Tablet 1 tablet Orally Once a day Fish Oil 1200 MG Capsule 1 capsule Orally Once a day Atorvastatin Calcium 10 MG Tablet 1 tablet Orally Once a day Vitamin C 1000 MG Tablet 1 tablet Orally Once a day Furosemide 20 MG Tablet 1 tablet Orally Saturday, Sat, Saturday Vitamin D3 125 MCG (5000 UT) Capsule 1 capsule Orally Once a day Propranolol HCl 20 MG Tablet 1 tablet Orally Once a day Losartan Potassium 50 MG Tablet 1 tablet Orally Once a day Xarelto 2.5 MG Tablet 1 tablet with food Orally Twice a day Current Meds: Medications Dose Ordered Sig/Leroy Start Time Stop Time Status Last Admin Levofloxacin/ Dextrose 100 ml @ 100 mls/hr Q24H 06/16/25 14:30 06/26/25 14:29 06/16/25 14:54 Nitroglycerin 0.4 mg AD PRN 06/16/25 15:30 07/16/25 15:29 Clopidogrel Bisulfate 75 mg DAILY 06/17/25 09:00 07/17/25 08:59 Famotidine 20 mg BID 06/16/25 21:00 07/16/25 20:59 Furosemide 20 mg DAILY 06/17/25 09:00 07/17/25 08:59 Acetaminophen 650 mg Q4H PRN 06/16/25 15:30 07/16/25 15:29 Ondansetron HCl 4 mg Q6H PRN 06/16/25 15:30 07/16/25 15:29 Losartan Potassium 50 mg DAILY 06/17/25 09:00 07/17/25 08:59 Enoxaparin Sodium 30 mg DAILY 06/17/25 09:00 07/17/25 08:59 Magnesium Sulfate 50 ml @ 0 mls/hr PROTOCOL 06/16/25 16:00 07/16/25 15:59 Review of Systems: CONST: No fever, fatigue, or weight changes. EYES: No recent vision problems. ENT: No congestion, ear pain, or sore throat. C/V: No chest pain, palpitations, or edema. RESP: No cough, congestion, wheezing or shortness of breath. GI: No abdominal pain, nausea, vomiting, constipation, or diarrhea. : No incontinence or dysuria. SKIN: Admits to left lower extremity york ulceration. NEURO: No headache, focal numbness or weakness, dizziness, or seizures. PSYCH: No depression or anxiety. HEME: No abnormal bruising or bleeding. LYMPH: No swollen glands. Physical Examination: GENERAL: No acute distress. HEAD: Normal with no signs of head trauma. EYES: PERRLA, EOMI, conjunctiva and sclera normal. ENT: Hearing grossly intact, normal oropharynx. NECK: Supple without JVD. There is no tenderness, lymphadenopathy, or masses. No thyromegaly. Normal carotid upstrokes without bruits. LUNGS: Clear breath sounds bilaterally. No wheezes, or rhonchi. HEART: Normal rate and rhythm. Normal S1 and S2 without murmurs, gallop or rub. VASC: Right DP pulse 2 +. ABD: Bowel sounds normal, soft, nontender, no masses, no organomegaly. No audible bruits. : Not examined LYMPH: No lymphadenopathy noted. EXT: No clubbing, cyanosis or edema. SKIN: Left lower extremity wrapped with Coban dressing, darkened discoloration noted to the dorsal aspect of foot. NEURO: Awake, alert, and oriented x3. No focal sensory or strength deficits noted. Vital Signs (last 8hr) Date Time Temp Pulse Resp B/P (MAP) Pulse Ox O2 Delivery O2 Flow Rate FiO2 06/16/25 15:00 97.9 73 15 143/68 97 Room Air* 0 21 06/16/25 12:45 97.7 66 16 144/64 96 Room Air* 0 21 06/16/25 12:42 97.7 66 16 144/64 96 Room Air 0 Laboratory: Hematology Labs: Test 06/16/25 13:04 Range/Units White Blood Count 6.4 4.8-10.8 K/uL Red Blood Count 5.26 4.00-5.50 MIL/uL Hemoglobin 12.1 12.0-16.0 g/dL Hematocrit 38.6 36-48 % Mean Corpuscular Volume 73.4 L 79-99 fL Mean Corpuscular Hemoglobin 23.0 L 27.0-33.0 pg Mean Corpuscular Hemoglobin Concent 31.3 L 32.0-36.0 g/dL Red Cell Distribution Width 15.9 H 11.0-15.5 % Platelet Count 311 130-400 K/uL Mean Platelet Volume 9.2 7.5-10.5 fL Immature Granulocyte % (Auto) 0.5 0-1 % Neutrophils (%) (Auto) 56.5 40.0-77.0 % Lymphocytes (%) (Auto) 22.8 21.0-51.0 % Monocytes (%) (Auto) 14.1 H 3.0-13.0 % Eosinophils (%) (Auto) 5.3 0.0-8.0 % Basophils (%) (Auto) 0.8 0.0-5.0 % Neutrophils # (Auto) 3.6 1.8-7.7 K/uL Lymphocytes # (Auto) 1.5 1.0-4.8 K/uL Monocytes # (Auto) 0.9 0.1-1.0 K/uL Eosinophils # (Auto) 0.34 0.00-0.70 K/uL Basophils # (Auto) 0.05 0.00-0.20 K/uL Absolute Immature Granulocyte (auto 0.03 0-1 K/uL Nucleated Red Blood Cells 0.0 0.0-0.19 % Red Blood Cell Morphology See comments Chemistry Labs: Test 06/16/25 13:04 Range/Units Sodium Level 138 136-145 mmol/L Potassium Level 4.4 3.5-5.1 mmol/L Chloride Level 101 101-111 mmol/L Carbon Dioxide Level 34 H 21-32 mmol/L Blood Urea Nitrogen 12 7-18 mg/dL Creatinine 0.7 0.5-1.0 mg/dL Glomerular Filtration Rate Calc 85 >90 mL/min Random Glucose 109 H 70-105 mg/dL Total Calcium 9.5 8.5-10.1 mg/dL Magnesium Level 2.00 1.80-2.40 mg/dL Total Bilirubin 0.4 0.2-1.0 mg/dL Direct Bilirubin 0.1 0.0-0.3 mg/dL Aspartate Amino Transf (AST/SGOT) 28 10-37 U/L Alanine Aminotransferase (ALT/SGPT) 21 12-78 U/L Alkaline Phosphatase 90 50-136 U/L Troponin I High Sensitivity 9 4-50 ng/L B-Type Natriuretic Peptide 97 0-100 pg/mL Total Protein 7.7 6.0-8.3 g/dL Albumin 2.8 L 3.5-5.0 g/dL Diagnostics / Radiology: Impression and Plan: Chest pressure Hypertension Dyslipidemia Venous insufficiency Iliac vein stenosis s/p left common and external iliac vein stenting on 09/05/22 s/p right common external iliac vein stenting with a 16 x 120 mm Medtronic venous self-expanding stent on 04/30/2025 Lower extremity arterial Doppler 10/2024 demonstrated PAD s/p peripheral angiography on 10/26/2024 revealed moderate disease of tibioperoneal trunk with total occlusion of the left PT and AT in the mid section with reconstitution of PT via the peroneal distally supplying the foot BLE CTA with runoff on 12/30/2024 revealed severe infrapopliteal disease with single-vessel runoff on the right and diseased but at least two-vessel runoff on the left Chronic left york ulcer 2D echo on 10/25/2024 with an LVEF of 65-70%, normal wall motion, grade 1 diastolic dysfunction, and mild pulmonary hypertension with RVSP of 44 mmHg Chest pressure Troponin of 9, additional cardiac enzymes are due at 1800 and midnight EKG demonstrated NSR with a hr of 63bpm with a RBBB, no acute ischemia noted -If cardiac enzymes are negative, keep the patient NPO after midnight for a Lexiscan stress test in AM to assess for ischemia -Pending 2D Echocardiogram -Restart home medication of Losartan 50mg daily, Propranolol 20mg daily, Plavix 75mg daily and Atorvastatin 10mg qhs RAVINDER BARBER [facility] Jun 16, 2025 17:05 Electronically Signed by: RAVINDER BARBER [facility]06/16/25 1705 Electronically Co-Signed by: Procedure(s): [place] [address] [place] [address] IMAGING REPORT Signed PATIENT: MARIVEL GIL MR#: [id number] : 1940 SEX: F AGE: 85 LOCATION: [facility] ORDER 1244 STATUS: [facility] REPORT#: [id number] SERVICE 1243 REASON: cp ORDERING PHYSICIAN: KEYONNA MARTINEZ MD PROCEDURE: CXR1VW - CHEST 1VW EXAM: CR Chest, 1 View. CLINICAL HISTORY: cp COMPARISON: Radiograph dated December 18, 2016 Findings: AP view of the chest is submitted. Left basilar airspace disease may reflect atelectasis and/or an infectious process. Small left pleural effusion. No pneumothorax. Heart size is stable. Mild central pulmonary vascular congestion. IMPRESSION: 1. Left basilar airspace disease, possibly representing atelectasis or infection, with small left pleural effusion. 2. Mild central pulmonary vascular congestion. /[place] DICTATED BY: ZAC BUSH Jr., MD DATE: 06/16/251513 ELECTRONICALLY SIGNED BY: ZAC BUSH Jr., MD DATE: 06/16/251513 [facility] [place] [place] [address] [place], [place] [id number] IMAGING REPORT Signed PATIENT: MARIVEL GIL MR#: [id number] : 1940 SEX: F AGE: 85 LOCATION: [facility] ORDER 14 STATUS: ADM IN REPORT#: [id number] SERVICE 11 REASON: lower extremity edema, hx of venous insufficiency ORDERING PHYSICIAN: MIGUEL CHEN MD PROCEDURE: VENOUS VAUGHN - US VENOUS DOPPLER BILATERAL EXAM: US Right Lower Extremity Nonvascular Soft Tissue Ultrasound CLINICAL HISTORY: Right Leg swelling. TECHNIQUE: Real-time ultrasound scan of the Right lower extremity with image documentation, including compression, color Doppler, and spectral waveform analysis from the common femoral vein through the calf veins. Right lower extremity venous duplex ultrasound performed with compression, color Doppler, and spectral waveform analysis from the common femoral vein through the calf veins. COMPARISON: None available. FINDINGS: SOFT TISSUES: No abnormal fluid collections or soft tissue masses identified. RIGHT LOWER EXTREMITY: Common femoral, femoral (proximal, mid, distal), popliteal, posterior tibial, and peroneal veins are patent and fully compressible. Normal flow augmentation and color Doppler signal. No evidence of intraluminal thrombus. IMPRESSION: 1. No evidence of deep vein thrombosis (DVT) in Right lower extremity. EXAM: US Left Lower Extremity Nonvascular Soft Tissue Ultrasound CLINICAL HISTORY: Left Leg swelling. TECHNIQUE: Real-time ultrasound scan of the Left lower extremity with image documentation, including compression, color Doppler, and spectral waveform analysis from the common femoral vein through the calf veins. Left lower extremity venous duplex ultrasound performed with compression, color Doppler, and spectral waveform analysis from the common femoral vein through the calf veins. COMPARISON: None available. FINDINGS: SOFT TISSUES: No abnormal fluid collections or soft tissue masses identified. LEFT LOWER EXTREMITY: Common femoral, femoral (proximal, mid, distal), popliteal, posterior tibial, and peroneal veins are patent and fully compressible. Normal flow augmentation and color Doppler signal. No evidence of intraluminal thrombus. IMPRESSION: 1. No evidence of deep vein thrombosis (DVT) in Left lower extremity. /[place] DICTATED BY: BRADLEY GOEL MD DATE: 06/16/251843 ELECTRONICALLY SIGNED BY: BRADLEY GOEL MD DATE: 06/16/251843 Assessment/Plan: Discharge Diagnosis: Atypical chest pain/chest pressure, POA Urinary tract infection, POA Underlying history of hypertension POA History of chronic bilateral lower extremity venous insufficiency, POA Hyperlipidemia, POA History of iliac vein stenosis status post left common iliac and external iliac vein stenting in 08/2022 History of right common external iliac vein stenting in 04/2025, POA History of peripheral arterial disease, POA History of chronic venous stasis ulcer involving the left leg, POA Octogenarian, POA History of penicillin allergy, POA PLAN: Atypical chest pain/chest pressure, POA Follow up with Dr. Dominguez on outpatient basis for 2D ECHO and lexicon stress test report Chest x-ray showed mild pulmonary vascular congestion with small left-sided pleural effusion Urinary tract infection, POA Oral antibiotics for UTI History of chronic venous stasis ulcer involving the left leg, POA Patient to continue with wound care with Dr. Espino while inpatient Discharge Instructions: DATE OF ADMISSION: 06.16.2025 DATE OF DISCHARGE: 06.17.2025 DISPOSITION: home CONDITION: Medically stable CONSULTANTS: Dr. Espino - wound care management Dr. Ghotra - cardiology FOLLOW UP APPOINTMENTS: Follow up with your primary care doctor in 2 to 3 days for 2D ECHO and Lexiscan stress test report. SPECIFIC INSTRUCTIONS: Take antibiotics as prescribed for UTI Drink plenty of fluids to maintain hydration. Continue medications as prescribed She is instructed to return to the emergency department if she develops recurrent chest pain, shortness of breath, fever, or worsening leg swelling PROCEDURES: Lexiscan stress test IMAGING: report attached to summary MICROBIOLOGY: report attached to summary HOME MEDICATIONS: see med rec NEW MEDICATIONS: See medication reconciliation EMERGENCY INSTRUCTIONS: The patient was instructed to present to the nearest Emergency department or call 911 once their symptoms will return or worsen. Home Medications: Active Scripts Levofloxacin (Levofloxacin) 500 Mg Tablet, 1 TAB PO DAILY for 7 Days, #7 TAB 0 Refills Prov:MARIA DE JESUS GREEN MD 06/17/25 Reported Medications Clopidogrel Bisulfate (Clopidogrel) 75 Mg Tablet, 1 TAB PO DAILY for 30 Days, #30 TAB 0 Refills 04/30/25 Cholecalciferol (Vitamin D3) (Vitamin D3) 50 Mcg (2000 Unit) Capsule, 50 MCG PO DAILY, CAP 04/28/25 Biotin (Biotin) 5,000 Mcg Tab.rapdis, 5000 MCG PO DAILY, TAB 04/28/25 [place]-3 Fatty Acids ([place]-3) 1,000 Mg Capsule, 500 MG PO DAILY, CAP 04/28/25 Atorvastatin Calcium (LIPITOR) 10 Mg Tab, 10 MG PO HS, TAB 04/28/25 Loratadine (Loratadine) 10 Mg Tablet, 10 MG PO HS, TAB 04/28/25 Propranolol HCl (Propranolol HCl) 10 Mg Tablet, 10 MG PO BID, TAB 04/28/25 Multivitamin with Minerals (Multiple Vitamin) 1 Each Tablet, 1 EACH PO DAILY, TAB 04/11/22 Ascorbic Acid (Vitamin C) 1,000 Mg Tablet, 1000 MG PO DAILY, TAB 04/11/22 Aspirin (Aspirin) 81 Mg Tab.chew, 81 MG PO DAILY, TAB.CHEW 04/11/22 Furosemide (Furosemide) 20 Mg Tablet, 20 MG PO 5X/WEEK, TAB 04/11/22 Losartan Potassium (Losartan Potassium) 50 Mg Tablet, 50 MG PO DAILY, TAB 04/11/22 Time spent arranging discharge: 1-30 minutes ATTESTATION BY PHYSICIAN I have seen and examined the patient. I reviewed the documentation, medical decision making, and treatment plan as noted by the resident provider above. I agree with the findings and plan of care. Pablo Mckeon MD, LAKSHMI MD Jun 17, 2025 16:47
[2025-06-17] MEDS ORDERED: LORATAdine 10 mg 10 MG TABLET PO SCH (21:00)
--- NOTE | 2025-06-17 23:16 | HMCSR ---
APPROVED REPORT EXAM: Two-dimensional and M-mode echocardiogram with Doppler and color Doppler. INDICATION ICD: Chest pressure, assess for heart failure 2D Dimensions RVDd4.0 cmLVEF(%)71.4 (>50%)LVED Vol(simp.)96.0 mL IVSd1.7 (0.7-1.1cm)FS(%)39 %LVES Vol(simp.)38.0 mL LVDd2.8 (3.8-5.6cm)LA (2D)2.8 (1.6-4.0cm)LVEF(%, simp.)60 % PWd1.6 (0.7-1.1cm)Ao Root(2D)3.3 (2.0-3.7cm)LA ESV INDEX (BP)38.22 mL/m2 LVDs1.7 (2.5-4.0cm)LVOT diam1.9 (1.8-2.4cm) Deformation Strain Apical 4-15.1 % Apical 2-19.8 % Apical 3-13.0 % Global Strain-15.9 % M-Mode Dimensions EPSS0.8 cm LA (MM)3.0 (1.6-4.0cm) Ao Root(MM)3.3 (2.0-3.7cm) Aortic Valve AoV Vmax1.7 m/Brianna Peak GR11.4 mmHgLVOT Vmax1.2 m/s AoV VTI0.4 mAo Mean GR6.1 mmHgLVOT VTI0.23 m VISHAL (VMAX)2.01 cm2AVA (VTI) 1.8 cm2 Mitral Valve MV E Vmax52.8 cm/sDECEL Dqam209 ms MV A Vmax88.6 cm/sP 1/2 T92 ms E/A ratio0.6MVA (PHT)2.4 cm2 TDI E/E' Icfsaz73.0E/E' Lateral7.4 Medial E' Peak V4.05 cm/sLateral E' Peak V7.09 cm/s Pulmonary Valve PV Vmax1.0 m/sPV VTI0.18 mPV Mean GR2.6 mmHg PV Peak GR4.2 mmHgPI End Radha. Lex 101.9 cm/s Left Ventricle The left ventricle is normal size. GLS -16.0% There is normal LV segmental wall motion. Severe concen tric left ventricular hypertrophy. The LVEF is > 55%. Stage I diastolic dysfunction. Right Ventricle The right ventricle is normal size. The right ventricular systolic function is normal. Normal TAPSE. Atria The left atrium is mildly dilated with an LA ESV index of 38 mL/m2. The right atrium is moderately di lated. Aortic Valve Aortic valve is trileaflet with nodular sclerosis of the non-coronary cusp. No aortic stenosis. No ao rtic regurgitation is present. There is no aortic valvular stenosis. Mitral Valve Mitral valve leaflets open well. Mild posterior annular calcification noted. There is no mitral valve regurgitation noted. There is no mitral valve stenosis. Tricuspid Valve The tricuspid valve is normal in structure. There is no tricuspid valve regurgitation noted. Pulmonic Valve The pulmonary valve is normal in structure. There is trace of pulmonic valvular regurgitation. Great Vessels The aortic root is normal in size. The IVC is normal in size and collapses >50% with inspiration. Pericardium There is no pericardial effusion. Other Information Quality : Adequate Conclusion The left atrium is mildly dilated with an LA ESV index of 38 mL/m2. The left ventricle is normal size. Severe concentric left ventricular hypertrophy. GLS -16.0% There is normal LV segmental wall motion. The LVEF is > 55%. Stage I diastolic dysfunction. Aortic valve is trileaflet with nodular sclerosis of the non-coronary cusp. No aortic stenosis. There is no mitral valve regurgitation noted. There is no pericardial effusion.
--- NOTE | 2025-06-18 12:46 | HMCSR ---
APPROVED REPORT Height: 5 ft 5in Weight: 175 lbs TEST INDICATIONS Chest Pressure The imaging protocol used to acquire images was Rest Tc-99m/stress Tc-99m 1 day Consent: The procedure was explained and understood by the patient. Informerd consent was witnessed Cisco SLATER RN First, low dose rest was performed then high dose stress. RESTING DATA: The resting ekg shows: NSR Rest SPECT myocardial perfusion imaging was performed in supine position minutes following the intra venous injection of 10 mCi of Tc-99 Sestamibi. Time of rest injection: 06:45: Date: 06/17/2025 PHARMACOLOGIC STRESS: Pharmacologic stress test was performed by injecting regadenoson 0.4 mg IV push followed by the intra venous injection of 27 mCi of Tc-99 Sestamibi. Time of stress injection: 08:13: Date: 06/17/2025 Heart Rate at time of stress injection: 83 bpm. Gated Stress SPECT was performed 60 minutes after stress injection. The images were gated to evaluate regional wall motion and calculate left ventricular ejection fracti on. STRESS DETAILS Reason for Termination: Infusion complete Stress Symptoms: Dyspnea Max HR Achieved: 103 bpm % of APMHR Achieved: 90 Max Blood Pressure: 154/58 mmHg Stress ECG: NSR Study quality was good. Lung uptake was Normal. Artifact: breast and diaphragmatic artifact LEFT VENTRICLE Size: The left ventricular size is small. Systolic Function:The left ventricular systolic function is hyperdynamic. Wall Motion: No regional wall motion abnormalities noted. LV PERFUSION The rest and stress images show normal perfusion. Conclusion Normal myocardial perfusion noted No evidence of reversible ischemia Studies in the setting of small left ventricular volumes Calculated EF seems inaccurate Low risk scan Clinical correlation recommended
== END 2025-06-17 17:00 | disposition home or self-care (01) ==
LOC: EDH 12:41 → OBSVTOIN 15:12 → UNDOADMOB 15:12 → INTOOBSV 15:12 → EDHIP 15:12 → 4BH 18:05 → EDHIP 18:05 → 4BH 06-17 08:30 → EDHIP 06-17 08:30
PROVIDERS: ADMIT Internal Medicine; ATTEND Internal Medicine
DX: R07.89 Other chest pain (principal); N39.0 Urinary tract infection, site not specified; I27.20 Pulmonary hypertension, unspecified; E78.5 Hyperlipidemia, unspecified; I87.2 Venous insufficiency (chronic) (peripheral); I10 Essential (primary) hypertension; I83.029 Varicose veins of left lower extremity with ulcer of unspecified site; R79.1 Abnormal coagulation profile; R79.89 Other specified abnormal findings of blood chemistry; Z79.01 Long term (current) use of anticoagulants; Z20.822 Contact with and (suspected) exposure to COVID-19; Z88.0 Allergy status to penicillin; Z79.02 Long term (current) use of antithrombotics/antiplatelets; Z79.899 Other long term (current) drug therapy
CPT/HCPCS: 99285; 82550 ×2; 80076; 83735 ×3; 84484 ×3; 80048; 83880; 85025 ×2; 87086; 87804 ×2; 81001; 36415 ×2; 87635; 71045; 93970; 96365; 93005; 83540; 83550; 80053; 82728; 93017; 78452; 93306; 93356; J1956; G0378 ×8; J2785; A9500 ×2